=== PATIENT | male | born 1955 | race Caucasian/White ===

== ENCOUNTER 2025-07-06 16:02 | Emergency (ER) | payer MEDICARE, SELFPAY ==
--- OUTSIDE RECORDS SUMMARY | 2025-05-21 06:00 | XMS_ITS | Encounter Summary ---
Author Organization [facility] Address [address] [place] [address] Phone Care Team Providers Care Railroad Brake Operator Name Role Phone Lizbeth Iniguez MD Primary Care Provider [phone] Encounter Details Date Type Department Care Team (Latest Contact Info) Description 05/21/2025 8:00 AM EDT Anticoagulation - Warfarin Visit [facility] [address] [facility] [address] [place] [phone] Pulmonary embolism, unspecified chronicity, unspecified pulmonary embolism type, unspecified whether acute cor pulmonale present (Multi) Discharge Disposition: Home Social History Tobacco Use Types Packs/Day Years Used Date Smoking Tobacco: Never Smokeless Tobacco: Never Alcohol Use Standard Drinks/Week Comments Yes 4 (1 standard drink = 0.6 oz pur e alcohol) PHQ-2 Answer Date Recorded Patient Health Questionnaire-2 Score 0 02/02/2025 Sex and Gender Information Value Date Recorded Sex Assigned at Male 11/13/2024 4:47 PM EDT Legal Sex Male 7:57 AM EST Gender Identity Male 11/13/2024 4:47 PM EDT Sexual Orientation Straight 11/13/2024 4: 47 PM EDT documented as of this encounter Functional Status * Communicable Disease Screening Question Answer Date of Assessment Author Do you have any of the following new or worsening symptoms? None of these 05/22/2025 8:08 AM EDT Evangelina Chavez M A documented as of this encounter Progress Notes * Laura Sloan RN - 05/21/2025 8:00 AM EDT Images from the original note were not included. Patient identification verified with 2 identifiers. Location: [facility] - [address] [facility]. [place] [id number] Referring Physician: Dr Iniguez Enrollment/ Re-enrollment date: 04/24/26 INR Goal: 2.0-3.0 INR monitoring is per [facility] protocol. Anticoagulation Medication: warfarin Indication: Pulmonary Embolism (PE) Subjective Bleeding signs/symptoms: No Bruising: No Major bleeding event: No Thrombosis signs/symptoms: No Thromboembolic event: No Missed doses: No Extra doses: No Medication changes: Yes pt continues to take Tapering Prednisone Dietary changes: No Change in health: No Change in activity: No Alcohol: No Other concerns: No Upcoming Procedures: Does the Patient Have any upcoming procedures that require interruption in anticoagulation therapy?no Does the patient require bridging? no Anticoagulation Summary As of 05/21/2025 INR goal: 2.0-3.0 TTR: 77.0% (2 y) INR used for dosin.30 (05/21/2025) Weekly warfarin total: 36 mg Assessment/Plan Supratherapeutic 1. New dose: will decrease todays dose 2. Next INR: 3 days Education provided to patient during the visit: Patient instructed to call in interim with questions, concerns and changes. Patient educated on interactions between medications and warfarin. Patient educated on dietary consistency in vitamin k consumption. Patient educated on affects of alcohol consumption while taking warfarin. Patient educated on signs of bleeding/clotting. Patient educated on compliance with dosing, follow up appointments, and prescribed plan of care. documented in this encounter Plan of Treatment Upcoming Encounters Date Type Department Care Team (Latest Contact Info) Description 07/19/2025 8:15 AM EST Anticoagulation - Warfarin Visit [facility] [address] [facility] [address] [place] [address] 07/25/2025 1:40 PM EST Office Visit [facility] [address] [facility] [address] [place] [address] Sena Teixeira, COURTROOM CLERK-HEAD NURSE [address] [facility] [address] [place], [place] [phone] 08/03/2025 8:30 AM EST Office [facility] [address] [facility] [address] [place] [address] Lizbeth Iniguez MD [address] [facility], [address] [place] [address] 11/23/2025 8:00 AM EDT Office Visit [facility] [address] [facility] 202 [place] [phone] Sena Teixeira, COURTROOM CLERK-HEAD NURSE [address] [facility] [address] [place] [address] documented as of this encounter Procedures Procedure Name Priority Date/Time Associated Diagnosis Comments POCT INR Routine 05/21/2025 8:06 AM EDT Pulmonary embolism, unspecified chronicity, unspecified pulmonary embolism type, unspecified whether acute cor pulmonale present (Multi) documented in this encounter Results * (ABNORMAL) POCT INR manually resulted (05/21/2025 8:06 AM EDT) [facility] Signature POC INR 3.30(A) 0.90 - 1.10 POC Prothrombin Time 9.30 - 12.50 Blood Venous blood specimen / Unknown 05/21/2025 8:06 AM EDT Lizbeth Iniguez MD POINT OF CARE TEST ENTER/EDIT O RDERABLES Final Result documented in this encounter Visit Diagnoses Diagnosis Pulmonary embolism, unspecified chronicity, unspecified pulmonary embolism type, unspecified whether acute cor pulmonale present (Multi) documented in this encounter Additional Health Concerns Assessment Noted Time A fall risk assessment has been complete d for the patient 02/02/2025 7:48 AM EDT documented as of this encounter Care Teams Railroad Brake Operator Relationship Specialty Start Date End Date Lizbeth Iniguez MD [address] [facility], [address] [place], [place] [phone] PCP - General 12/21/11 documented as of this encounter
--- OUTSIDE RECORDS SUMMARY | 2025-05-24 06:15 | XMS_ITS | Encounter Summary ---
Author Organization [facility] Address [address] [place] [address] Phone Care Team Providers Care High School Professional Name Role Phone Lizbeth Jerez MD Primary Care Provider [phone] Encounter Details Date Type Department Care Team (Latest Contact Info) Description 05/24/2025 8:15 AM EDT Anticoagulation - Warfarin Visit [facility] [address] [facility] [address] [place] [address] Xin Agarwal RN Pulmonary embolism, unspecified chronicity, unspecified pulmonary embolism type, unspecified whether acute cor pulmonale present (Multi) (Primary Dx) Discharge Disposition: Home Social History Tobacco Use [...] Author Do you have any of the follo wing new or worsening symptoms? None of these 05/24/2025 8:04 AM EDT Alden Long documented as of this encounter Progress Notes * Xin Agarwal RN - 05/24/2025 8:15 AM EDT Patient identification verified with 2 identifiers. Location: [facility] - [address] [facility]. [place], [place] [address] Referring Physician: DR. JEREZ Enrollment/ Re-enrollment date: 04/26/26 INR Goal: 2.0-3.0 INR monitoring is per [facility] protocol. Anticoagulation Medication: warfarin Indication: Pulmonary Embolism (PE) Subjective Bleeding signs/symptoms: No Bruising: No Major bleeding event: No Thrombosis signs/symptoms: No Thromboembolic event: No Missed doses: No Extra doses: No Medication changes: Yes PT CONTINUES TO TAPER PREDNISONE. HE HAS ONE MORE DAY OF TAKING TWO TABLETS THEN WILL TAKE ONE TABLET DAILY UNTIL 05/28/25 Dietary changes: No Change in health: No Change in activity: No Alcohol: No Other concerns: No Upcoming Procedures: Does the Patient Have any upcoming procedures that require interruption in anticoagulation therapy?no Does the patient require bridging? no Anticoagulation Summary As of 05/24/2025 INR goal: 2.0-3.0 TTR: 76.7% (2 y) INR used for dosin.20 (05/24/2025) Weekly warfarin total: 36 mg Assessment/Plan Supratherapeutic 1. New dose: PT ALREADY TOOK 5MG TODAY, SO WILL DECREASE TOMORROW'S DOSE FROM 5MG TO 3MG, THEN MAINTAIN CURRENT WARFARIN DOSE. 2. Next INR: 4 DAYS Education provided to patient during the visit: Patient instructed to call in interim with questions, concerns and changes. Patient educated on interactions between medications and warfarin. Patient educated on dietary consistency in vitamin k consumption. Patient educated on affects of alcohol consumption while taking warfarin. Patient educated on signs of bleeding/clotting. documented in this encounter Plan of Treatment Upcoming Encounters Date Type Department Care Team (Latest Contact Info) Description 07/19/2025 8:15 AM EST Anticoagulation - Warfarin Visit [facility] [address] [facility] [address] [place] [address] 07/25/2025 1:40 PM EST Office Visit [facility] [address] [facility] [address] [place] [address] Sena Teixeira, PROMOTION WRITER-DIRECTOR OF STRATEGIC MARKETING [address] [place] [address] 08/03/2025 8:30 AM EST Office Visit [facility] [address] [place] [phone] Lizbeth Jerez MD [address] [facility], [address] [place] [address] 11/23/2025 8:00 AM EDT Office Visit [facility] [address] [facility] 202 [place] [phone] Sena Teixeira, PROMOTION WRITER-DIRECTOR OF STRATEGIC MARKETING [address] [facility] [address] [place] [address] documented as of this encounter Procedures Procedure Name Priority Date/Time Associated Diagnosis Comments POCT INR Routine 05/24/2025 8:12 AM EDT Pulmonary embolism, unspecified chronicity, unspecified pulmonary embolism type, unspecified whether acute cor pulmonale present (Multi) documented in this encounter Results * (ABNORMAL) POCT INR manually resulted (05/24/2025 8:12 AM EDT) [facility] POC INR 3.20(A) 0.90 - 1.10 POC Prothrombin Time 9.30 - 12.50 Blood Venous blood specimen / Unknown 05/24/2025 8:12 AM EDT Lizbeth Jerez MD POINT OF CARE TEST ENTER/EDIT O RDERABLES Final Result documented in this encounter Visit Diagnoses Diagnosis Pulmonary embolism, unspecified chronicity, unspecified pulmonary embolism type, unspecified whether acute cor pulmonale present (Multi)- Primary documented in this encounter Additional Health Concerns Assessment Noted Time A fall risk assessment has been complete d for the patient 02/02/2025 7:48 AM EDT documented as of this encounter Care Teams High School Professional Relationship Specialty Start Date End Date Lizbeth Jerez MD [address] [facility], [address] [place] [address] PCP - General 12/21/11 documented as of this encounter
--- OUTSIDE RECORDS SUMMARY | 2025-05-31 06:15 | XMS_ITS | Encounter Summary ---
Author Organization [facility] Address [address] [place] [address] Phone Care Team Providers Care Launching Pad Mechanic Name Role Phone Lizbeth Jerez MD Primary Care Provider [phone] Encounter Details Date Type Department Care Team (Latest Contact Info) Description 05/31/2025 8:15 AM EDT Anticoagulation - Warfarin Visit [facility] [address] [facility] [address] [place] [phone] Xin Agarwal RN Pulmonary embolism, unspecified chronicity, [...] new or worsening symptoms? None of these 05/31/2025 7:58 AM EDT Ty Butler documented as of this encounter Progress Notes * Xin Agarwal RN - 05/31/2025 8:15 AM EDT Patient identification verified with 2 identifiers. Location: [facility] - [address] [facility]. [place] [id number] Referring Physician: DR. JEREZ Enrollment/ Re-enrollment date: 04/24/26 INR Goal: 2.0-3.0 INR monitoring is per [facility] protocol. Anticoagulation Medication: warfarin Indication: Pulmonary Embolism (PE) Subjective Bleeding signs/symptoms: No Bruising: No Major bleeding event: No Thrombosis signs/symptoms: No Thromboembolic event: No Missed doses: No Extra doses: No Medication changes: No Dietary changes: No Change in health: No Change in activity: No Alcohol: No Other concerns: No Upcoming Procedures: Does the Patient Have any upcoming procedures that require interruption in anticoagulation therapy?no Does the patient require bridging? no Anticoagulation Summary As of 05/31/2025 INR goal: 2.0-3.0 TTR: 76.8% (2 y) INR used for dosin.80 (05/31/2025) Weekly warfarin total: 36 mg Assessment/Plan Therapeutic 1. New dose: no change 2. Next INR: 1 week Education provided to patient during the visit: Patient instructed to call in interim with questions, concerns and changes. Patient educated on signs of bleeding/clotting. documented in this encounter Plan of Treatment Upcoming Encounters Date Type Department Care Team (Latest Contact Info) Description 07/19/2025 8:15 AM EST Anticoagulation - Warfarin Visit [facility] [address] [facility] [address] [place] [address] 07/25/2025 1:40 PM EST Office Visit [facility] [address] [facility] [address] [place] [phone] Sena Teixeira, HEAVY EQUIPMENT OPERATING ENGINEER-MEDICAL MASSAGE THERAPIST [address] [facility] 202 [place] [address] 08/03/2025 8:30 AM EST Office Visit [facility] [address] [facility] [address] [place] [phone] Lizbeth Jerez MD [address] [facility], [address] [place] [address] 11/23/2025 8:00 AM EDT Office Visit [facility] [address] [facility] [address] [place] [address] PuneetSena bautista, HEAVY EQUIPMENT OPERATING ENGINEER-MEDICAL MASSAGE THERAPIST [address] [facility] [address] [place], [place] [phone] documented as of this encounter Procedures Procedure Name Priority Date/Time Associated Diagnosis Comments POCT INR Routine 05/31/2025 8:06 AM EDT Pulmonary embolism, unspecified chronicity, unspecified pulmonary embolism type, unspecified whether acute cor pulmonale present (Multi) documented in this encounter Results * (ABNORMAL) POCT INR manually resulted (05/31/2025 8:06 AM EDT) POC INR 2.80(A) 0.90 - 1.10 POC Prothrombin Time 9.30 - 12.50 Blood Venous blood specimen / Unknown 05/31/2025 8:06 AM EDT us Lizbeth Jerez MD POINT OF CARE TEST [...] documented as of this encounter Care Teams Launching Pad Mechanic Relationship Specialty Start Date End Date Lizbeth Jerez MD [address] [facility], [address] [place] [address] PCP - General 12/21/11 documented as of this encounter
--- OUTSIDE RECORDS SUMMARY | 2025-06-07 06:15 | XMS_ITS | Encounter Summary ---
Author Organization [facility] Address [address] [place] [address] Phone Care Team Providers Care Liner Machine Operator Helper Name Role Phone Lizbeth Jerez MD Primary Care Provider [phone] Encounter Details Date Type Department Care Team (Latest Contact Info) Description 06/07/2025 8:15 AM EDT Anticoagulation - Warfarin Visit [facility] [address] [facility] [address] [place] [phone] Kaylee Clark RN Pulmonary embolism, unspecified chronicity, unspecified pulmonary [...] new or worsening symptoms? None of these 06/07/2025 8:02 AM EDT Evangelina Chavez M A documented as of this encounter Progress Notes * Kaylee Clark RN - 06/07/2025 8:15 AM EDT Patient identification verified with 2 identifiers. Location: [facility] - [address] [facility]. [place] [id number] Referring Physician: DR. LIZBETH JEREZ Enrollment/ Re-enrollment date: 04/26/2026 INR Goal: 2.0-3.0 INR monitoring is per [facility] protocol. Anticoagulation Medication: warfarin Indication: Pulmonary Embolism [...] require bridging? no Anticoagulation Summary As of 06/07/2025 INR goal: 2.0-3.0 TTR: 77.0% (2 y) INR used for dosin.80 (06/07/2025) Weekly warfarin total: 36 mg Assessment/Plan Therapeutic 1. New dose: no change 2. Next INR: 2 weeks Education provided to patient during the visit: Patient instructed to call in interim with questions, concerns and changes. Patient educated on compliance with dosing, follow up appointments, and prescribed plan of care. documented in this encounter Plan of Treatment Upcoming Encounters Date Type Department Care Team (Latest Contact Info) Description 07/19/2025 8:15 AM EST Anticoagulation - Warfarin Visit [facility] [address] [facility] [address] [place] [address] 07/25/2025 1:40 PM EST Office Visit [facility] [address] [place] [phone] Sena Teixeira, DIANA-CENTRAL STATION OPERATOR [address] [place] [address] 08/03/2025 8:30 AM EST Office Visit [facility] [address] [place] [address] Lizbeth Jerez MD [address] [facility], [address] [place] [address] 11/23/2025 8:00 AM EDT Office Visit [facility] [address] [facility] [address] [place] [address] Sena Teixeira, MARKETING PLANNER-CENTRAL STATION OPERATOR [address] [facility] [address] [place], [place] [phone] documented as of this encounter Procedures Procedure Name Priority Date/Time Associated Diagnosis Comments POCT INR Routine 06/07/2025 8:08 AM EDT Pulmonary embolism, unspecified chronicity, unspecified pulmonary embolism type, unspecified whether acute cor pulmonale present (Multi) documented in this encounter Results * (ABNORMAL) POCT INR manually resulted (06/07/2025 8:08 AM EDT) POC INR 2.80(A) 0.90 - 1.10 POC Prothrombin Time 9.30 - 12.50 Blood Venous blood specimen / Unknown 06/07/2025 8:08 AM EDT Lizbeth Jerez MD POINT OF [...] documented as of this encounter Care Teams Liner Machine Operator Helper Relationship Specialty Start Date End Date Lizbeth Jerez MD [address] [facility], [address] [place] [address] PCP - General 12/21/11 documented as of this encounter
--- OUTSIDE RECORDS SUMMARY | 2025-06-21 06:15 | XMS_ITS | Encounter Summary ---
Author Organization [facility] Address [address] [place] [address] Phone Care Team Providers Care Green Chain Offbearer Name Role Phone Lizbeth Jerez MD Primary Care Provider [phone] Encounter Details Date Type Department Care Team (Latest Contact Info) Description 06/21/2025 8:15 AM EDT Anticoagulation - Warfarin Visit [facility] [address] [facility] [address] [place] [phone] Xin Agarwal RN Pulmonary embolism, unspecified chronicity, [...] new or worsening symptoms? None of these 06/21/2025 8:02 AM EDT Alcides Crow MA documented as of this encounter Progress Notes * Xin Agarwal RN - 06/21/2025 8:15 AM EDT Patient identification verified with 2 identifiers. Location: [facility] [address] [place] [address] option #1 Referring Physician: DR. JEREZ Enrollment/ Re-enrollment date: 04/26/26 INR Goal: 2.0-3.0 INR monitoring is per [facility] protocol. Anticoagulation Medication: warfarin Indication: Pulmonary Embolism [...] require bridging? no Anticoagulation Summary As of 06/21/2025 INR goal: 2.0-3.0 TTR: 77.4% (2.1 y) INR used for dosin.70 (06/21/2025) Weekly warfarin total: 36 mg Assessment/Plan Therapeutic 1. New dose: no change 2. Next INR: 1 month Education provided to patient during the visit: Patient instructed to call in interim with questions, concerns and changes. Patient educated on signs of bleeding/clotting. documented in this encounter Plan of Treatment Upcoming Encounters Date Type Department Care Team (Latest Contact Info) Description 07/19/2025 8:15 AM EST Anticoagulation - Warfarin Visit [facility] [address] [facility] [address] [place] [address] 07/25/2025 1:40 PM EST Office Visit [facility] [address] [place] [phone] Sena Teixeira, ACCOUNT ASSOCIATE-SENIOR COMMERCIAL LOAN OFFICER [address] [place] [address] 08/03/2025 8:30 AM EST Office Visit [facility] [address] [facility] [address] [place] [address] Lizbeth Jerez MD [address] [facility], [address] [place] [address] 11/23/2025 8:00 AM EDT Office Visit [facility] [address] [facility] [address] [place] [address] Sena Teixeira, ACCOUNT ASSOCIATE-SENIOR COMMERCIAL LOAN OFFICER [address] [facility] [address] [place], [place] [phone] documented as of this encounter Procedures Procedure Name Priority Date/Time Associated Diagnosis Comments POCT INR Routine 06/21/2025 8:07 AM EDT Pulmonary embolism, unspecified chronicity, unspecified pulmonary embolism type, unspecified whether acute cor pulmonale present (Multi) documented in this encounter Results * (ABNORMAL) POCT INR manually resulted (06/21/2025 8:07 AM EDT) POC INR 2.70(A) 0.90 - 1.10 POC Prothrombin Time 9.30 - 12.50 Blood Venous blood specimen / Unknown 06/21/2025 8:07 AM EDT us Lizbeth Jerez MD POINT [...] documented as of this encounter Care Teams Green Chain Offbearer Relationship Specialty Start Date End Date Lizbeth Jerez MD [address] [facility], [address] [place] [address] PCP - General 12/21/11 documented as of this encounter
[2025-07-06 16:16] VITALS: BP 143/83; PULSE 59; RESP 18; TEMP 36.6; O2SAT 98
--- NOTE | 2025-07-06 16:27 | ED.GENADULT ---
HPI - General Adult General Date Seen: 07/06/25 Chief complaint: Eye Problems Stated complaint: blood in right eye Time Seen by Provider: 07/06/25 16:26 History of Present Illness HPI narrative: 70-year-old gentleman who has a history of atrial fibrillation, on Coumadin presenting to the ER today for blood affecting his right eye. He has no known injury. He is actually from [place] and flew in to [place] today. INR was most recently checked about 2 weeks ago and at that time was therapeutic at 2.6. He and his traveled from their home in [place] today to visit his [id number] who lives here in [place]. He has been doing well lately. No known trauma to his eyes. No other unusual bleeding or bruising. He has not had any eye pain, blurry vision, or any trouble with his vision. No headache. No facial pain. This morning his noted that he had a little bit of blood on the lower, outer, white part of his righteye. the red area has expanded since then. It is not painful or causing any trouble with his vision but he is concerned that his INR might be too thin. He notes that sometimes since he uses generic Coumadin that when he changes from 1 bottle to another, the actual strength of the tablets might be different and that can throw his INR off. It had been pretty stable lately. No other unusual bleeding or bruising. No black or bloody stools. No nose bleeds. No bleeding gums. Related Data Home Medications ?Medication ?Instructions ?Recorded ?Confirmed fluticasone propionate 50 1 spray intranasal DAILY 07/06/25 07/06/25 mcg/actuation nasal spray,suspension (24 Hour Allergy Relief) lisinopril 5 mg tablet 5 mg PO DAILY 07/06/25 07/06/25 loratadine 10 mg tablet (Claritin) 10 mg PO DAILY 07/06/25 07/06/25 lovastatin 20 mg tablet 20 mg PO DAILY 07/06/25 07/06/25 metoprolol succinate 50 mg 50 mg PO DAILY 07/06/25 07/06/25 tablet,extended release 24 hr (Toprol XL) pantoprazole 20 mg tablet,delayed 20 mg PO DAILY 07/06/25 07/06/25 release tamsulosin 0.4 mg capsule (Flomax) 0.4 mg PO DAILY 07/06/25 07/06/25 warfarin 5 mg tablet 5 mg PO DAILY 07/06/25 07/06/25 Allergies Allergy/AdvReac Type Severity Reaction Status Date / Time No Known Drug Allergies Allergy Verified 07/06/25 16:20 PFSH PFS Social History Smoking Status: Never smoker How often do you have a drink containing alcohol: 2-3 times a week AUDIT-C Alcohol total score: 3 Non-prescribed substance use: denies use Exam Narrative: Exam Narrative: Constitutional: Appears well-developed and well-nourished. Alert. Conversant. Non toxic. HENT: Head: Atraumatic. Nose: Nose normal. Mouth/Throat: Oral mucosa is clear and moist. no trismus. Eyes: PERRLA, EOMI. No exophthalmos or enophthalmos. Left eye has normal conjunctiva. On the right eye there is a subconjunctival hemorrhage affecting the inferior, lateral quadrant. Fortunately there is no sign of hyphema. Slit Lamp Exam: Lids: No foreign body noted in detailed exam upper and lower lids/margins Anterior Chamber: No cells or flare, No hyphema. No hypopyon. Cornea: No foreign body. Neck: Normal range of motion. Neck supple. No tracheal deviation present. Cardiovascular: Skin is pink, warm, well perfused with normal capillary refill. Pulmonary/Chest: Effort normal. No stridor. No respiratory distress Musculoskeletal: RUE: Normal range of motion. No tenderness. No deformity LUE: Normal range of motion. No tenderness. No deformity RLE: Normal range of motion. No edema. No tenderness. No deformity LLE: Normal range of motion. No edema. No tenderness. No deformity Neurological: Alert and oriented to person, place, and time. Normal strength. CN II-VII intact. No sensory deficit. GCS eye subscore is 4. GCS verbal subscore is 5. GCS motor subscore is 6. Normal coordination Skin: Skin is warm and dry. No rash noted. No pallor. Normal capillary refill. Psychiatric: Normal mood. Normal affect. Const: Vital Signs, click to edit/add: Vital Signs - 24 hr 07/06/25 16:16 Temperature 98 F Pulse Rate [Pulse Oximeter] 59 L Respiratory Rate 18 Blood Pressure [Ri ght Upper Arm] 143/83 H Pulse Oximetry 98 Oxygen Delivery Me thod Room Air Course Vital Signs Vital signs: Initial Vital Signs Temperature 98 F 07/06/25 16:16 Temperature Source Temporal Artery Scan 07/06/25 16:16 Pulse Rate 59 L 07/06/25 16:16 Respiratory Rate 18 07/06/25 16:16 Blood Pressure 143/83 H 07/06/25 16:16 Blood Pressure Mean 103 07/06/25 16:16 Blood Pressure Position Sitting 07/06/25 16:16 Pulse Oximetry 98 07/06/25 16:16 Oxygen Delivery Method Room Air 07/06/25 16:16 Vital Signs Temperature 98 F 07/06/25 16:16 Pulse Rate 59 L 07/06/25 16:16 Respiratory Rate 18 07/06/25 16:16 Blood Pressure 143/83 H 07/06/25 16:16 Pulse Oximetry 98 07/06/25 16:16 Oxygen Delivery Method Room Air 07/06/25 16:16 Temperature 98 F 07/06/25 16:16 Pulse Rate 59 L 07/06/25 16:16 Respiratory Rate 18 07/06/25 16:16 Blood Pressure 143/83 H 07/06/25 16:16 Pulse Oximetry 98 07/06/25 16:16 Oxygen Delivery Method Room Air 07/06/25 16:16 Medical Decision Making MDM Narrative Medical decision making narrative: Very pleasant 70-year-old gentleman on Coumadin for history of DVT and PE presenting to the ER today with atraumatic redness and blood affecting his right lateral lower eye sclera. Clinical exam is consistent with a subconjunctival hemorrhage. The remainder of is eye exam is normal. Visual acuity is normal. He is not having any visual disturbance or floaters or flashers or vision loss. No evidence for any corneal injury or any cell or flare or hyphema in the anterior chamber. No history of eye trauma. No other associated bruising around the eye or any other unusual bruising on his body. He was concerned because he is on Coumadin he was worried his INR was supratherapeutic. We did check labs an INR is therapeutic at 2.15 and platelet count is normal. Hemoglobin is normal At this point I suspect this was probably a spontaneous subconjunctival hemorrhage or could have been related to some heart sneezing that he was doing earlier. At this point it appears to be benign. Would recommend continue on current medications and monitoring. Precautions for return to the ER need for recheck reviewed. Questions answered. Lab Data Labs: Lab Results 07/06/25 Range/Units 16:56 WBC 5.72 (4.50-11.00) K/uL RBC 5.23 (4.30-5.90) m/uL Hgb 15.3 (13.5-17.5) gm/dL Hct 46.7 (37.0-53.0) % MCV 89 (80-100) fL MCH 29 (26-34) pg MCHC 33 (32-36) gm/dL RDW Coeff of Reynaldo 13.5 (11.5-15.5) % Plt Count 202 (140-440) K/uL Neut % (Auto) 68.5 (42.0-72.0) % Lymph % (Auto) 20.5 (20-44) % [place] % (Auto) 9.1 (0.0-11.0) % Eos % (Auto) 0.9 (0.0-7.0) % Baso % (Auto) 0.3 (0.0-3.0) % Neut # (Auto) 3.92 (1.7-7.0) K/uL Lymph # (Auto) 1.17 (0.90-2.90) K/uL [place] # (Auto) 0.50 (0.00-0.90) K/UL Eos # (Auto) 0.05 (0.00-0.50) K/uL Baso # (Auto) 0.02 (0.00-0.30) K/uL Abs Immat Gran (auto) 0.04 (0.00-0.30) K/uL Imm/Tot Granulo (auto) 0.7 % INR 2.15 H (0.91-1.10) Discharge Plan Discharge Clinical Impression: Subconjunctival hemorrhage of right eye Patient Disposition: Home, Self-Care Condition: Stable Additional Instructions: As we discussed, so far your workup looks reassuring. Your INR is therapeutic at 2.15. Your platelet count is normal today. Your exam shows that you do have a subconjunctival hemorrhage (a small amount of bleeding from a ruptured blood vessel under the sclera of your eye. Although this can look alarming, it is generally a very benign condition. It usually will take several days for her body to gradually reabsorbed the blood. I do not expect any trouble with her vision, pain in your eye, or other problems. If you do notice blurry vision, double vision, vision loss in your right eye, eye pain, pus draining from her eye, or any other concerns, please come back to the ER right away to be rechecked. Prescriptions: No Action metoprolol succinate [Toprol XL] 50 mg tablet extended release 24 hr 50 mg PO DAILY lisinopril 5 mg tablet 5 mg PO DAILY tamsulosin [Flomax] 0.4 mg capsule 0.4 mg PO DAILY lovastatin 20 mg tablet 20 mg PO DAILY pantoprazole 20 mg tablet,delayed release (DR/EC) 20 mg PO DAILY fluticasone propionate [24 Hour Allergy Relief] 50 mcg/actuation spray,suspension 1 spray intranasal DAILY Rx Instructions: administer into each nostril loratadine [Claritin] 10 mg tablet 10 mg PO DAILY warfarin 5 mg tablet 5 mg PO DAILY Rx Instructions: 5mg daily Wed/Wed//Wed/Sat/Sun, 6mg daily on Tuesdays Follow Up/Referrals: Provider,Not a Local [Primary Care Provider, Family Practice] Stand Alone Forms: Knowledge Delivery System[employer] Info Instructions
[2025-07-06 17:02] LABS: Hematocrit* 46.7 % (37.0-53.0); Hemoglobin* 15.3 gm/dL (13.5-17.5); Immature Granulocytes Abs Auto 0.04 K/uL (0.00-0.30); Immature Granulocytes Pct Auto 0.7 %; Lymphocytes Absolute Auto 1.17 K/uL (0.90-2.90); Mean Corpuscular HGB Conc 33 gm/dL (32-36); Mean Corpuscular Hemoglobin 29 pg (26-34); Mean Corpuscular Volume 89 fL (80-100); RDW Coefficient of Variation % 13.5 % (11.5-15.5); Red Blood Count* 5.23 m/uL (4.30-5.90); White Blood Count* 5.72 K/uL (4.50-11.00)
[2025-07-06 17:04] LABS: Slide Review Reflex No
--- OUTSIDE RECORDS SUMMARY | 2025-07-06 17:10 | XMS_ITS | Encounter Summary ---
Author Organization [facility] Address [address] [place] [address] Phone Care Team Providers Care Electronic Heat Seal Operator Name Role Phone Lizbeth Iniguez MD Primary Care Provider [phone] Encounter Details Date Type Department Care Team (Late st Contact Info) Description 09/02/2024 Patient Risk Score ACO Care Management [address] [facility] [address] [place] [address] Social History Tobacco Use Types Packs/Day Years Used Date Smoking Tobacco: Never Smokeless Tobacco: Never Alcohol Use Standard Drinks/Week Comments Yes 4 (1 standard drink = 0.6 oz pur e alcohol) PHQ-2 Answer Date Recorded Patient Health Questionnaire-2 Score 0 08/04/2024 Sex and Gender Information Value Date Recorded Sex Assigned at Male 11/13/2024 4:47 PM EDT Legal Sex Male 7:57 AM EST Gender Identity Male 11/13/2024 4:47 PM EDT Sexual Orientation Straight 11/13/2024 4: 47 PM EDT COVID-19 Exposure Response Date Recorded In the last 10 days, have yo u been in contact with someone who was confirmed or suspected to have Coronavirus/COVID-19? No / Unsure 08/31/2024 7:55 AM EST documented as of this encounter Plan of Treatment Upcoming Encounters Date Type Department Care Team (Latest Contact Info) Description 07/19/2025 8:15 AM EST Anticoagulation - Warfarin Visit [facility] [address] [place] [address] 07/25/2025 1:40 PM EST Office Visit [address] [place] [address] Sena Teixeira, FLAME BRAZING MACHINE OPERATOR-FILM SORTER [address] [facility] [address] [place] [address] 08/03/2025 8:30 AM EST Office Visit [facility] [address] [facility] 201 [place] [address] Lizbeth Iniguez MD [address]778 [facility], [facility] [address] [place] [address] 11/23/2025 8:00 AM EDT Office Visit [address] [place] [address] Sena Teixeira, FLAME BRAZING MACHINE OPERATOR-FILM SORTER [address] [address] [place] [address] documented as of this encounter Visit Diagnoses Not on filedocumented in this encounter Additional Health Concerns Assessment Noted Time A fall risk assessment has been complete d for the patient 08/04/2024 9:36 AM EST documented as of this encounter Care Teams Electronic Heat Seal Operator Relationship Specialty Start Date End Date Lizbeth Iniguez MD [address] [facility], [facility] [address] [place] [address] PCP - General 12/21/11 documented as of this encounter
--- OUTSIDE RECORDS SUMMARY | 2025-07-06 17:10 | XMS_ITS | Encounter Summary ---
Author Organization [facility] Address [address] [place] [address] Phone Care Team Providers Care Art Professor Name Role Phone Lizbeth Iniguez MD Primary Care Provider [phone] Encounter Details Date Type Department Care Team (Late st Contact Info) Description 05/03/2024 Patient Risk Score ACO Care Management [address] [facility] [address] [place] [address] Social History Tobacco Use Types Packs/Day Years Used Date Smoking Tobacco: Never Smokeless Tobacco: Never Alcohol Use Standard Drinks/Week Comments Yes 4 (1 standard drink = 0.6 oz pur e alcohol) PHQ-2 Answer Date Recorded Patient Health Questionnaire-2 Score 0 09/21/2023 Sex and Gender Information Value Date Recorded [...] suspected to have Coronavirus/COVID-19? No / Unsure 04/27/2024 8:06 AM EDT documented as of this encounter Plan of Treatment Upcoming Encounters Date Type Department Care Team (Latest Contact Info) Description 07/19/2025 8:15 AM EST Anticoagulation - Warfarin Visit [facility] [address] [place] [address] 07/25/2025 1:40 PM EST Office Visit [address] [place] [address] Sena Teixeira, CNC MACHINE SETTER-PROGRAM WRITER [address] [facility] [address] [place] [address] 08/03/2025 8:30 AM EST Office Visit [facility] [address] [facility] [address] [place] [address] Lizbeth Iniguez MD [address] [facility], [facility] [address] [place] [address] 11/23/2025 8:00 AM EDT Office Visit [address] [place] [address] Sena Teixeira, CNC MACHINE SETTER-PROGRAM WRITER [address] [facility] [address] [place] [address] documented as of this encounter Visit Diagnoses Not on filedocumented in this encounter Additional Health Concerns Assessment Noted Time A fall risk assessment has been complete d for the patient 09/21/2023 8:18 AM EST documented as of this encounter Care Teams Art Professor Relationship Specialty Start Date End Date Lizbeth Iniguez MD [address] [facility], [facility] [address] [place] [address] PCP - General 12/21/11 documented as of this encounter
--- OUTSIDE RECORDS SUMMARY | 2025-07-06 17:10 | XMS_ITS | Encounter Summary ---
Author Organization [facility] Address [address] [place] [address] Phone Care Team Providers Care Computing Consultant Name Role Phone Lizbeth Iniguez MD Primary Care Provider [phone] Encounter Details Date Type Department Care Team (Late st Contact Info) Description 06/02/2024 Patient Risk Score ACO Care Management [address] [facility] [address] [place] [address] Social History Tobacco Use Types [...] suspected to have Coronavirus/COVID-19? No / Unsure 06/01/2024 8:14 AM EDT documented as of this encounter Plan of Treatment Upcoming Encounters Date Type Department Care Team (Latest Contact Info) Description 07/19/2025 8:15 AM EST Anticoagulation - Warfarin Visit [facility] [address] [place] [address] 07/25/2025 1:40 PM EST Office Visit [address] [place] [address] Sena Teixeira, INFORMATICS NURSE-MALT ROASTER [address] [facility] [address] [place] [address] 08/03/2025 8:30 AM EST Office Visit [facility] [address] [facility] 201 [place] [address] Lizbeth Iniguez MD [address]778 [facility], [facility] 201 [place] [address] 11/23/2025 8:00 AM EDT Office Visit [address] [place] [address] Sena Teixeira, INFORMATICS NURSE-MALT ROASTER [address] [facility] [address] [place] [address] documented as of this encounter Visit Diagnoses Not on filedocumented in this encounter Additional Health Concerns Assessment Noted Time A fall risk assessment has been complete d for the patient 09/21/2023 8:18 AM EST documented as of this encounter Care Teams Computing Consultant Relationship Specialty Start Date End Date Lizbeth Iniguez MD [address] [facility], [facility] [address] [place] [address] PCP - General 12/21/11 documented as of this encounter
--- OUTSIDE RECORDS SUMMARY | 2025-07-06 17:10 | XMS_ITS | Encounter Summary ---
Author Organization [facility] Address [address] [place] [address] Phone Care Team Providers Care Band Singer Name Role Phone Lizbeth Iniguez MD Primary Care Provider [phone] Encounter Details Date Type Department Care Team (Late st Contact Info) Description 07/03/2024 Patient Risk Score ACO Care Management [address] [facility] [address] [place] [address] Social History Tobacco Use Types [...] suspected to have Coronavirus/COVID-19? No / Unsure 07/06/2024 7:56 AM EST documented as of this encounter Functional Status * Communicable Disease Screening Question Answer Date of Assessment Author Do you have any of the following new or worsening symptoms? None of these 07/06/2024 7:56 AM EST Carey Reina MA documented as of this encounter Plan of Treatment Upcoming Encounters Date Type Department Care Team (Latest Contact Info) Description 07/19/2025 8:15 AM EST Anticoagulation - Warfarin Visit [facility] [address] [facility] 203 [place] [address] 07/25/2025 1:40 PM EST Office Visit [address] [place] [address] Sena Teixeira, PERLITE GRINDER-ROUGHER MACHINE OPERATOR [address] [facility] 202 [place] [address] 08/03/2025 8:30 AM EST Office Visit [facility] [address] [facility] 201 [place] [phone] Lizbeth Iniguez MD 5778 [facility], [facility] 201 [place] [address] 11/23/2025 8:00 AM EDT Office Visit [address] [place] [address] Sena Teixeira, PERLITE GRINDER-ROUGHER MACHINE OPERATOR [address] [facility] 202 [place] [address] documented as of this encounter Visit Diagnoses Not on filedocumented in this encounter Additional Health Concerns Assessment Noted Time A fall risk assessment has been complete d for the patient 09/21/2023 8:18 AM EST documented as of this encounter Care Teams Band Singer Relationship Specialty Start Date End Date Lizbeth Iniguez MD [address] [facility] [facility], [facility] [address] [place] [address] PCP - General 12/21/11 documented as of this encounter
--- OUTSIDE RECORDS SUMMARY | 2025-07-06 17:10 | XMS_ITS | Encounter Summary ---
Author Organization [facility] Address [address] [place] [address] Phone Care Team Providers Care Surgical Dental Assistant Name Role Phone Lizbeth Iniguez MD Primary Care Provider [phone] Reason for Visit * Reason Comments Med Refill Encounter Details Date Type Department Care Team (Late st Contact Info) Description 04/28/2024 Refill [facility] [address] [place] [address] Sena Teixeira, PUBLIC HEALTH SPECIALIST-COMPUTER FIELD TECHNICIAN [address] [facility] [address] [place], [place] [phone] BPH with obstruction/lower urinary tract symptoms; Erectile dysfunction, unspecified erectile dysfunction type Social History Tobacco Use Types Packs/Day Years [...] AM EDT documented as of this encounter Miscellaneous Notes * Telephone Encounter - LUIS Alcaraz - 05/09/2024 10:40 AM EDT Duplicate documented in this encounter Plan of Treatment Upcoming Encounters Date Type Department Care Team (Latest Contact Info) Description 07/19/2025 8:15 AM EST Anticoagulation - Warfarin Visit [facility] [address] [place] [address] 07/25/2025 1:40 PM EST Office Visit [address] [place] [phone] Sena Teixeira APRN-CNP [address] [facility] 202 [place], [place] [phone] 08/03/2025 8:30 AM EST Office Visit [facility] [address] [facility] [address] [place] [phone] Lizbeth Iniguez MD 5778 [facility], [facility] [address] [place] [address] 11/23/2025 8:00 AM EDT Office Visit [address] [place] [phone] Sena Teixeira APRN-CNP [address] [facility] [address] [place] [address] documented as of this encounter Visit Diagnoses Diagnosis BPH with obstruction/lower urinary tract symptoms Erectile dysfunction, unspecified erectile dysfunction type documented in this encounter Additional Health Concerns Assessment Noted Time A fall risk assessment has been complete d for the patient 09/21/2023 8:18 AM EST documented as of this encounter Care Teams Surgical Dental Assistant Relationship Specialty Start Date End Date Lizbeth Iniguez MD [address] [facility], [facility] [address] [place] [address] PCP - General 12/21/11 documented as of this encounter
--- OUTSIDE RECORDS SUMMARY | 2025-07-06 17:10 | XMS_ITS | Encounter Summary ---
Author Organization [facility] Address [address] [place] [address] Phone Care Team Providers Care Project Systems Engineer Name Role Phone Lizbeth Iniguez MD Primary Care Provider [phone] Reason for Visit * Reason Comments Med Refill Encounter Details Date Type Department Care Team (Late st Contact Info) Description 04/02/2024 Refill [facility] [address] [place] [address] Sena Teixeira, DIE CASTER-ASSOCIATE DIRECTOR CAREER SERVICES [address] [facility] [address] [place], [place] [phone] BPH with obstruction/lower urinary tract symptoms; Erectile [...] suspected to have Coronavirus/COVID-19? No / Unsure 04/05/2024 3:02 PM EDT documented as of this encounter Functional Status * Communicable Disease Screening Question Answer Date of Assessment Author Do you have any of the following new or worsening symptoms? None of these 04/05/2024 3:02 PM EDT Alma Delia Jacobs MA documented as of this encounter Miscellaneous Notes * Telephone Encounter - LUIS Alcaraz - 04/03/2024 1:09 PM EDT Approving, but needs appt for additional refills. documented in this encounter Plan of Treatment Upcoming Encounters Date Type Department Care Team (Latest Contact Info) Description 07/19/2025 8:15 AM EST Anticoagulation - Warfarin Visit [facility] [address] [facility] [address] [place] [address] 07/25/2025 1:40 PM EST Office Visit [address] [place] [address] Sena Teixeira APRN-CNP [address] [facility] [address] [place] [address] 08/03/2025 8:30 AM EST Office Visit [facility] [address] [place] [phone] Lizbeth Iniguez MD [address] [facility], [address] [place], [place] [phone] 11/23/2025 8:00 AM EDT Office Visit [address] [facility] [address] [place] [address] Sena Teixeira APRN-CNP [address] [facility] [address] [place] [address] documented as of this encounter Visit Diagnoses Diagnosis BPH with obstruction/lower urinary tract symptoms Erectile dysfunction, unspecified erectile dysfunction type documented in this encounter Additional Health Concerns Assessment Noted Time A fall risk assessment has been complete d for the patient 09/21/2023 8:18 AM EST documented as of this encounter Care Teams Project Systems Engineer Relationship Specialty Start Date End Date Lizbeth Iniguez MD [address] [facility], [address] [place] [address] PCP - General 12/21/11 documented as of this encounter
--- OUTSIDE RECORDS SUMMARY | 2025-07-06 17:10 | XMS_ITS | Encounter Summary ---
Author Organization [facility] Address [address] [place] [address] Phone Care Team Providers Care Director Of Business Development Name Role Phone Lizbeth Iniguez MD Primary Care Provider [phone] Encounter Details Date Type Department Care Team (Late st Contact Info) Description 08/28/2024 Scanned Document [facility] [address] [facility] 201 [place] [address] Lizbeth Iniguez MD [address] [facility], [facility] 201 [place] [address] Social History Tobacco Use Types Packs/Day Years [...] new or worsening symptoms? None of these 08/31/2024 7:55 AM EST Robbin Gaspar documented as of this encounter Plan of Treatment Upcoming Encounters Date Type Department Care Team (Latest Contact Info) Description 07/19/2025 8:15 AM EST Anticoagulation - Warfarin Visit [facility] [address] [facility] 203 [place] [address] 07/25/2025 1:40 PM EST Office Visit [address] 202 [place] [address] Sena Teixeira, PAPERBACK MACHINE OPERATOR-REAL ESTATE LEGAL SECRETARY [address] [facility] 202 [place], [place] [address] 08/03/2025 8:30 AM EST Office Visit [facility] [address] [phone] Lizbeth Iniguez MD [address] [facility], [address] [address] 11/23/2025 8:00 AM EDT Office Visit [address] 202 [place] [address] Sena Teixeira, PAPERBACK MACHINE OPERATOR-REAL ESTATE LEGAL SECRETARY [address] [facility] 202 [place] [address] documented as of this encounter Visit Diagnoses Not on filedocumented in this encounter Additional Health Concerns Assessment Noted Time A fall risk assessment has been complete d for the patient 08/04/2024 9:36 AM EST documented as of this encounter Care Teams Director Of Business Development Relationship Specialty Start Date End Date Lizbeth Iniguez MD [address] [facility], [facility] 201 [place] [address] PCP - General 12/21/11 documented as of this encounter
--- OUTSIDE RECORDS SUMMARY | 2025-07-06 17:10 | XMS_ITS | Encounter Summary ---
Author Organization [facility] Address [address] [place] [address] Phone Care Team Providers Care Real Estate Underwriter Name Role Phone Lizbeth Iniguez MD Primary Care Provider [phone] Encounter Details Date Type Department Care Team (Late st Contact Info) Description 04/02/2024 Patient Risk Score ACO Care Management [address] [place] [address] Social History Tobacco Use Types [...] Jacobs MA documented as of this encounter Plan of Treatment Upcoming Encounters Date Type Department Care Team (Latest Contact Info) Description 07/19/2025 8:15 AM EST Anticoagulation - Warfarin Visit [facility] [address] [facility] 203 [place] [address] 07/25/2025 1:40 PM EST Office Visit [address] 202 [place] [address] Sena Teixeira, SCAFFOLD ERECTOR-EYEGLASS LENS CUTTER [address] [facility] 202 [place] [address] 08/03/2025 8:30 AM EST Office Visit [facility] 5778 [facility] 201 [place] [phone] Lizbeth Iniguez MD 5778 [facility], [facility] 201 [place] [address] 11/23/2025 8:00 AM EDT Office Visit [address] 202 [place] [address] Sena Teixeira, SCAFFOLD ERECTOR-EYEGLASS LENS CUTTER [address] [place] [address] 202 [place] [address] documented as of this encounter Visit Diagnoses Not on filedocumented in this encounter Additional Health Concerns Assessment Noted Time A fall risk assessment has been complete d for the patient 09/21/2023 8:18 AM EST documented as of this encounter Care Teams Real Estate Underwriter Relationship Specialty Start Date End Date Lizbeth Iniguez MD [address] [facility], [facility] 201 [place] [address] PCP - General 12/21/11 documented as of this encounter
--- OUTSIDE RECORDS SUMMARY | 2025-07-06 17:10 | XMS_ITS | Encounter Summary ---
Author Organization [facility] Address [address] [place] [address] Phone Care Team Providers Care Agronomist Name Role Phone Lizbeth Iniguez MD Primary Care Provider [phone] Reason for Visit * Reason Comments Med Refill Encounter Details Date Type Department Care Team (Late st Contact Info) Description 09/05/2024 Refill [facility] [address] [facility] 202 [place] [address] Sena Teixeira, ATTORNEY LAWYER-CHILD CARE TEACHER [address] [facility] 202 [place], [place] [phone] Benign prostatic hyperplasia with lower urinary tract symptoms; Other obstructive and reflux uropathy Social History Tobacco Use Types Packs/Day Years [...] suspected to have Coronavirus/COVID-19? No / Unsure 09/07/2024 8:03 AM EST documented as of this encounter Functional Status * Communicable Disease Screening Question Answer Date of Assessment Author Do you have any of the following new or worsening symptoms? None of these 09/07/2024 8:03 AM EST Evangelina Chavez M A documented as of this encounter Miscellaneous Notes * Telephone Encounter - LUIS Alcaraz - 09/06/2024 1:40 PM EST Approving, but needs appt for additional refills. documented in this encounter Plan of Treatment Upcoming Encounters Date Type Department Care Team (Latest Contact Info) Description 07/19/2025 8:15 AM EST Anticoagulation - Warfarin Visit [facility] 8819 [facility] [address] [place] [address] 07/25/2025 1:40 PM EST Office Visit [address] 202 [place] [address] Sena Teixeira APRN-CNP [address] [facility] 202 [place] [address] 08/03/2025 8:30 AM EST Office Visit [facility] [address] [place] [phone] Lizbeth Iniguez MD [address] [facility], [address] 201 [place], [place] [phone] 11/23/2025 8:00 AM EDT Office Visit [address] 202 [place] [address] Sena Teixeira APRN-CNP [address] [facility] 202 [place] [address] documented as of this encounter Visit Diagnoses Diagnosis Benign prostatic hyperplasia with lower urinary tract symptoms Other obstructive and reflux uropathy documented in this encounter Additional Health Concerns Assessment Noted Time A fall risk assessment has been complete d for the patient 08/04/2024 9:36 AM EST documented as of this encounter Care Teams Agronomist Relationship Specialty Start Date End Date Lizbeth Iniguez MD [address] [facility], [address] [place] [address] PCP - General 12/21/11 documented as of this encounter
--- OUTSIDE RECORDS SUMMARY | 2025-07-06 17:11 | XMS_ITS | Encounter Summary ---
Author Organization [facility] Address [address] [place] [address] Phone Care Team Providers Care Sales Representative Uniforms Name Role Phone Lizbeth Iniguez MD Primary Care Provider [phone] Geneva Renee DRUG SAFETY SPECIALIST-MANAGER SALT Unavailable [phone] Paty Butts DRUG SAFETY SPECIALIST-MANAGER SALT Unavailable [phone] Lizbeth Iniguez MD Unavailable [phone] Encounter Details Date Type Department Care Team (Late st Contact Info) Description 02/04/2018 Orders Only [facility] [address] [place] [address] Conversion, Onbase Social History Tobacco Use Types Packs/Day Years Used Date Smoking Tobacco: Never Assessed Sex and Gender Information Value Date Recorded Sex Assigned at Male 11/13/2024 4:47 PM EDT Legal Sex Male 7:57 AM EST Gender Identity Male 11/13/2024 4:47 PM EDT Sexual Orientation Straight 11/13/2024 4: 47 PM EDT documented as of this encounter Plan of Treatment Upcoming Encounters Date Type Department Care Team (Latest Contact Info) Description 07/19/2025 8:15 AM EST Anticoagulation - Warfarin Visit [facility] [address] [facility] [address] [place] [address] 07/25/2025 1:40 PM EST Office Visit [facility] [address] [facility] [address] [place] [address] Sena Teixeira, DRUG SAFETY SPECIALIST-MANAGER SALT [address] [place] [address] 08/03/2025 8:30 AM EST Office Visit [facility] 5778 [facility] 201 [place] [phone] Lizbeth Iniguez MD [address] [facility], [facility] 201 [place] [address] 11/23/2025 8:00 AM EDT Office Visit [facility] [address] [facility] 202 [place] [address] Sena Teixeira DRUG SAFETY SPECIALIST-MANAGER SALT [address] [phone] Scheduled Orders Name Type Priority Associated Diagnoses Orde r Schedule OUTSIDE LAB SCAN Lab Ordered: 02/04/2018 documented as of this encounter Visit Diagnoses Not on filedocumented in this encounter Care Teams Sales Representative Uniforms Relationship Specialty Start Date End Date Lizbeth Iniguez MD [address] [facility], [address] [address] PCP - General 12/21/11 Geneva Renee DRUG SAFETY SPECIALIST-MANAGER SALT [address] [facility], [facility] 201 [place] [address] PCP - MMO ACO PCP 03/30/22 09/29/22 Paty Butts DRUG SAFETY SPECIALIST-MANAGER SALT [address] [facility], [address] [place] [address] PCP - MMO ACO PCP 08/30/21 03/29/22 Lizbeth Iniguez MD [address] [facility], [facility] 201 [place] [address] PCP - MSSP ACO Attributed Provider 08/30/23 02/27/24 documented as of this encounter
--- OUTSIDE RECORDS SUMMARY | 2025-07-06 17:11 | XMS_ITS | Encounter Summary ---
Author Organization [facility] Address [address] [place] [address] Phone Care Team Providers Care Client Technologies Analyst Name Role Phone Lizbeth Iniguez MD Primary Care Provider [phone] Encounter Details Date Type Department Care Team (Late st Contact Info) Description 08/02/2024 Patient Risk Score ACO Care Management [address] [place] [address] Social History Tobacco Use Types [...] Recorded In the last 10 days, have roderick u been in contact with someone who was confirmed or suspected to have Coronavirus/COVID-19? No / Unsure 08/03/2024 8:03 AM EST documented as of this encounter Functional Status * BP Answer Date of Assessment Author 120/80 08/04/2024 9:37 AM EST Jannette Rodriguez, MARIUM * Communicable Disease Screening Question Answer Date of Assessment Author Do you have any of the following new or worsening symptoms? None of these 08/03/2024 8:03 AM EST Esperanza Hawthorne , PCNA * Question Answer Date of Assessment Author Little interest or pleasure in doing things Not at all 08/04/2024 9:36 AM Aracely Cardona CMA Feeling down, depressed, or hopeless Not at all 08/04/2024 9:36 AM Aracely Cardona CMA * Over the past 2 weeks, how often have you been bothered by any of the following problems? Question Answer Date of Assessment Author Little interest or pleasure in doing things Not at all 08/04/2024 9:36 AM Aracely Cardona CMA Feeling down, depressed, or hopeless Not at all 08/04/2024 9:36 AM Aracely Cardona CMA Patient Health Questionnaire-2 Score 0 08/04/2024 9:36 AM Axel Cardona CMA documented as of this encounter Plan of Treatment Upcoming Encounters Date Type Department Care Team (Latest Contact Info) Description 07/19/2025 8:15 AM EST Anticoagulation - Warfarin Visit [facility] 8819 [facility] 203 [place] [address] 07/25/2025 1:40 PM EST Office Visit [address] 202 [place] [phone] Sena Teixeira, CONSTRUCTION CARPENTERS HELPER-SCRATCHER [address] [facility] 202 [place] [address] 08/03/2025 8:30 AM EST Office Visit [facility] [address] [facility] 201 [place] [address] Lizbeth Iniguez MD [facility]778 [facility] [address] [place] [address] 11/23/2025 8:00 AM EDT Office Visit [address] 202 [place] [address] Sena Teixeira, CONSTRUCTION CARPENTERS HELPER-SCRATCHER [address] [facility] 202 [place] [address] documented as of this encounter Visit Diagnoses Not on filedocumented in this encounter Additional Health Concerns Assessment Noted Time A fall risk assessment has been complete d for the patient 09/21/2023 8:18 AM EST documented as of this encounter Care Teams Client Technologies Analyst Relationship Specialty Start Date End Date Lizbeth Iniguez MD [address] [facility], [address] [place] [address] PCP - General 12/21/11 documented as of this encounter
--- OUTSIDE RECORDS SUMMARY | 2025-07-06 17:11 | XMS_ITS | Encounter Summary ---
Author Organization [facility] Address [address] [place] [address] Phone Care Team Providers Care Visual C Developer Name Role Phone Lizbeth Iniguez MD Primary Care Provider [phone] Geneva Renee DRAMATIC ART TEACHER-TRANSPORTATION DIRECTOR Unavailable [phone] Paty Butts DRAMATIC ART TEACHER-TRANSPORTATION DIRECTOR Unavailable [phone] Lizbeth Iniguez MD Unavailable [phone] Encounter Details Date Type Department Care Team (Late st Contact Info) Description 02/08/2018 Orders Only [facility] [address] [place] [address] Conversion, Onbase Social History Tobacco Use Types [...] 8:15 AM EST Anticoagulation - Warfarin Visit [facility] [address] [facility] [address] 203 [place] [address] 07/25/2025 1:40 PM EST Office Visit [facility] [address] [facility] [address] 202 [place] [phone] Sena Teixeira, DRAMATIC ART TEACHER-TRANSPORTATION DIRECTOR [address] [place] [address] 08/03/2025 8:30 AM EST Office Visit [facility] 5778 [facility] 201 [place] [phone] Lizbeth Iniguez MD [address] [facility], [facility] 201 [place] [address] 11/23/2025 8:00 AM EDT Office Visit [facility] [address] [address] [facility] 202 [place] [address] Sena Teixeira DRAMATIC ART TEACHER-TRANSPORTATION DIRECTOR [address] [place] [address] [phone] Scheduled Orders Name Type Priority Associated Diagnoses Orde r Schedule OUTSIDE LAB SCAN Lab Ordered: 02/08/2018 documented as of this encounter Visit Diagnoses Not on filedocumented in this encounter Care Teams Visual C Developer Relationship Specialty Start Date End Date Lizbeth Iniguez MD [address] [facility], [address] [address] PCP - General 12/21/11 Geneva Renee DRAMATIC ART TEACHER-TRANSPORTATION DIRECTOR [address] [facility], [facility] 201 [place] [address] PCP - MMO ACO PCP 03/30/22 09/29/22 Paty Butts DRAMATIC ART TEACHER-TRANSPORTATION DIRECTOR [address] [facility], [address] [place] [address] PCP - MMO ACO PCP 08/30/21 03/29/22 Lizbeth Iniguez MD [address] [facility], [facility] 201 [place] [address] PCP - MSSP ACO Attributed Provider 08/30/23 02/27/24 documented as of this encounter
--- OUTSIDE RECORDS SUMMARY | 2025-07-06 17:11 | XMS_ITS | Encounter Summary ---
Author Organization [facility] Address [address] [place] [address] Phone Care Team Providers Care Diagnostic Radiologic Technologist Name Role Phone Lizbeth Iniguez MD Primary Care Provider [phone] Reason for Visit * Reason Comments Med Refill Encounter Details Date Type Department Care Team (Late st Contact Info) Description 06/11/2024 Refill [facility] [address] [facility] 202 [place] [address] Sena Teixeira, DIANA-LPN CMA [address] [facility] 202 [place], [place] [phone] Benign prostatic hyperplasia with lower urinary tract [...] * Telephone Encounter - LUIS Alcaraz - 06/12/2024 11:03 AM EDT Approving, but needs appt for additional refills. documented in this encounter Plan of Treatment Upcoming Encounters Date Type Department Care Team (Latest Contact Info) Description 07/19/2025 8:15 AM EST Anticoagulation - Warfarin Visit [facility] 8819 [facility] [address] 203 [place] [address] 07/25/2025 1:40 PM EST Office Visit [address] 202 [place] [address] Sena Teixeira APRN-CNP [address] [facility] 202 [place], [place] [address] 08/03/2025 8:30 AM EST Office Visit [facility] 5778 [facility] 201 [place] [phone] Lizbeth Iniguez MD [address] [facility] 201 [place], [place] [address] 11/23/2025 8:00 AM EDT Office Visit [address] 202 [place] [address] Sena Teixeira APRN-CNP [address] [facility] 202 [place] [address] documented as of this encounter Visit Diagnoses Diagnosis Benign prostatic hyperplasia with lower urinary tract symptoms Other obstructive and reflux uropathy documented in this encounter Additional Health Concerns Assessment Noted Time A fall risk assessment has been complete d for the patient 09/21/2023 8:18 AM EST documented as of this encounter Care Teams Diagnostic Radiologic Technologist Relationship Specialty Start Date End Date Lizbeth Iniguez MD [address] [facility], [facility] 201 [place] [address] PCP - General 12/21/11 documented as of this encounter
--- OUTSIDE RECORDS SUMMARY | 2025-07-06 17:12 | XMS_ITS | Encounter Summary ---
Author Organization [facility] Address [address] [place] [address] Phone Care Team Providers Care Electronics Commodity Manager Name Role Phone Lizbeth Iniguez MD Primary Care Provider [phone] Encounter Details Date Type Department Care Team (Latest Contact Info) Description 05/22/2025 Travel Social History Tobacco Use Types Packs/Day Years [...] M A documented as of this encounter Plan of Treatment Upcoming Encounters Date Type Department Care Team (Latest Contact Info) Description 07/19/2025 8:15 AM EST Anticoagulation - Warfarin Visit [facility] [address] [place] [address] 07/25/2025 1:40 PM EST Office Visit [facility] [address] [place] [address] Sena Teixeira, FOOD AND BEVERAGE CONTROLLER-HIDE HANDLER [address] [facility] 202 [place] [address] 08/03/2025 8:30 AM EST Office Visit [facility] Physicians [address] [facility] 201 [place] [phone] Lizbeth Iniguez MD 5778 [facility] 201 [place] [address] 11/23/2025 8:00 AM EDT Office Visit [facility] [address] [facility] 202 [place] [address] Sena Teixeira, FOOD AND BEVERAGE CONTROLLER-HIDE HANDLER [address] [facility] 202 [place] [address] documented as of this encounter Visit Diagnoses Not on filedocumented in this encounter Additional Health Concerns Assessment Noted Time A fall risk assessment has been complete d for the patient 02/02/2025 7:48 AM EDT documented as of this encounter Care Teams Electronics Commodity Manager Relationship Specialty Start Date End Date Lizbeth Iniguez MD [address] [facility], [facility] 201 [place] [address] PCP - General 12/21/11 documented as of this encounter
--- OUTSIDE RECORDS SUMMARY | 2025-07-06 17:12 | XMS_ITS | Encounter Summary ---
Author Organization [facility] Address [address] [place] [address] Phone Care Team Providers Care Pallet Rectifier Name Role Phone Lizbeth Iniguez MD Primary Care Provider [phone] Encounter Details Date Type Department Care Team (Latest Contact Info) Description 05/31/2025 Travel Social History Tobacco Use Types Packs/Day [...] Ty Butler documented as of this encounter Plan of Treatment Upcoming Encounters Date Type Department Care Team (Latest Contact Info) Description 07/19/2025 8:15 AM EST Anticoagulation - Warfarin Visit [facility] [address] [place] [address] 07/25/2025 1:40 PM EST Office Visit [facility] [address] [place] [address] Sena Teixeira, FLIGHT HOSTESS-BANK COMPLIANCE OFFICER [address] [facility] 202 [place] [address] 08/03/2025 8:30 AM EST Office Visit [facility] Physicians [address] [facility] 201 [place] [address] Lizbeth Iniguez MD [address] [facility] 201 [place] [address] 11/23/2025 8:00 AM EDT Office Visit [facility] [address] [facility] 202 [place] [address] Sena Teixeira, FLIGHT HOSTESS-BANK COMPLIANCE OFFICER [address] [facility] 202 [place] [address] documented as of this encounter Visit Diagnoses Not on filedocumented in this encounter Additional Health Concerns Assessment Noted Time A fall risk assessment has been complete d for the patient 02/02/2025 7:48 AM EDT documented as of this encounter Care Teams Pallet Rectifier Relationship Specialty Start Date End Date Lizbeth Iniguez MD [address] [facility], [facility] 201 [place] [address] PCP - General 12/21/11 documented as of this encounter
--- OUTSIDE RECORDS SUMMARY | 2025-07-06 17:12 | XMS_ITS | Encounter Summary ---
Author Organization [facility] Address [address] [place] [address] Phone Care Team Providers Care Endocrinologist Name Role Phone Lizbeth Jerez MD Primary Care Provider [phone] Encounter Details Date Type Department Care Team (Latest Contact Info) Description 05/28/2025 Anticoagulation - Warfarin Visit [facility] [address] [facility] [address] [place] [address] Gume Lu RN Pulmonary embolism, unspecified chronicity, unspecified pulmonary embolism type, unspecified whether acute cor pulmonale present (Multi) (Primary Dx) Social History Tobacco Use Types Packs/Day Years [...] PM EDT documented as of this encounter Progress Notes * Gume Lu RN - 05/28/2025 7:45 AM EDT Patient identification verified with 2 identifiers. Location: [facility] - [email or web address] [facility]. [place], [place] [address] Referring Physician: DR. JEREZ Enrollment/ Re-enrollment date: 04/26/26 INR Goal: 2.0-3.0 INR monitoring is per AMS protocol. Anticoagulation Medication: warfarin Indication: Pulmonary Embolism (PE) Subjective Bleeding signs/symptoms: No Bruising: No Major bleeding event: No Thrombosis signs/symptoms: No Thromboembolic event: No Missed doses: No Extra doses: No Medication changes: Yes Last dose of prednisone for right foot issue Dietary changes: No Change in health: No Change in activity: No Alcohol: No Other concerns: No Upcoming Procedures: Does the Patient Have any upcoming procedures that require interruption in anticoagulation therapy?no Does the patient require bridging? no Anticoagulation Summary As of 05/28/2025 INR goal: 2.0-3.0 TTR: 76.7% (2 y) INR used for dosin.40 (05/28/2025) Weekly warfarin total: 36 mg Assessment/Plan Therapeutic 1. New dose: no change 2. Next INR:05/31urs Education provided to patient during the visit: [...] 8:15 AM EST Anticoagulation - Warfarin Visit [facility] [address] [facility] 203 [place] [address] 07/25/2025 1:40 PM EST Office Visit [facility] [address] [facility] 202 [place] [address] Sena Teixeira, TRAVERSE ROD ASSEMBLER-VICE PRESIDENT OF TALENT MANAGEMENT [address] [facility] 202 [place] [address] 08/03/2025 8:30 AM EST Office Visit [facility] [address] [facility] 201 [place] [address] Lizbeth Jerez MD [address] [facility], [address] [place] [address] 11/23/2025 8:00 AM EDT Office Visit [facility] [address] [facility] 202 [place] [address] Sena Teixeira, TRAVERSE ROD ASSEMBLER-VICE PRESIDENT OF TALENT MANAGEMENT [address] [facility] 202 [place], [place] [phone] documented as of this encounter Procedures Procedure Name Priority Date/Time Associated Diagnosis Comments POCT INR Routine 05/28/2025 7:49 AM EDT Pulmonary embolism, unspecified chronicity, unspecified pulmonary embolism type, unspecified whether acute cor pulmonale present (Multi) documented in this encounter Results * (ABNORMAL) POCT INR manually resulted (05/28/2025 7:49 AM EDT) POC INR 2.40(A) 0.90 - 1.10 POC Prothrombin Time 9.30 - 12.50 Blood Venous blood specimen / Unknown 05/28/2025 7:49 AM EDT Lizbeth Jerez MD POINT OF [...] documented as of this encounter Care Teams Endocrinologist Relationship Specialty Start Date End Date Lizbeth Jerez MD [address] [facility], [address] [place] [address] PCP - General 12/21/11 documented as of this encounter
--- OUTSIDE RECORDS SUMMARY | 2025-07-06 17:12 | XMS_ITS | Encounter Summary ---
Author Organization [facility] Address [address] [address] Phone Care Team Providers Care Slag Wheeler Name Role Phone Lizbeth Iniguez MD Primary Care Provider [phone] Encounter Details Date Type Department Care Team (Latest Contact Info) Description 05/24/2025 Travel Social History Tobacco Use Types Packs/Day [...] Alden Long documented as of this encounter Plan of Treatment Upcoming Encounters Date Type Department Care Team (Latest Contact Info) Description 07/19/2025 8:15 AM EST Anticoagulation - Warfarin Visit [facility] [address] [place] [address] 07/25/2025 1:40 PM EST Office Visit [facility] [address] [place] [address] Sena Teixeira, COMMERCIAL OR INSTITUTIONAL CLEANER-CPAS [address] [facility] 202 [place] [address] 08/03/2025 8:30 AM EST Office Visit [facility] [address] [facility] 201 [place] [address] Lizbeth Iniguez MD [address] [facility] 201 [place] [address] 11/23/2025 8:00 AM EDT Office Visit [facility] [address] [facility] 202 [place] [address] Sena Teixeira, COMMERCIAL OR INSTITUTIONAL CLEANER-CPAS [address] [facility] 202 [place] [address] documented as of this encounter Visit Diagnoses Not on filedocumented in this encounter Additional Health Concerns Assessment Noted Time A fall risk assessment has been complete d for the patient 02/02/2025 7:48 AM EDT documented as of this encounter Care Teams Slag Wheeler Relationship Specialty Start Date End Date Lizbeth Iniguez MD [address] [facility], [facility] [place] 201 [place] [address] PCP - General 12/21/11 documented as of this encounter
--- OUTSIDE RECORDS SUMMARY | 2025-07-06 17:12 | XMS_ITS | Encounter Summary ---
Author Organization [facility] Address [address] [place] [address] Phone Care Team Providers Care Activities Counselor Name Role Phone Lizbeth Iniguez MD Primary Care Provider [phone] Lizbeth Iniguez MD Unavailable [phone] Reason for Visit * Reason Comments Med Change Request Encounter Details Date Type Department Care Team ([facility] st Contact Info) Description 06/30/2023 [facility] [address] [facility] 2 [place] [address] Grabiel Kelly MD [address] [facility] 2 [place], [place] [phone] Gastro-esophageal reflux disease without esophagitis Social History Tobacco Use Types Packs/Day Years Used Date Smoking Tobacco: Never Smokeless Tobacco: Never Alcohol Use Standard Drinks/Week Comments Yes 4 (1 standard drink = 0.6 oz pur e alcohol) PHQ-2 Answer Date Recorded Patient Health Questionnaire-2 Score 0 01/28/2023 Sex and Gender Information Value Date Recorded [...] suspected to have Coronavirus/COVID-19? No / Unsure 07/01/2023 8:52 AM EDT documented as of this encounter Functional Status * Communicable Disease Screening Question Answer Date of Assessment Author Do you have any of the following new or worsening symptoms? None of these 07/01/2023 8:52 AM EDT Deysi Hull LPN documented as of this encounter Miscellaneous Notes * Telephone Encounter - Grabiel Kelly MD - 06/30/2023 11:20 AM EDT Approving, but needs appt for additional refills. documented in this encounter Plan of Treatment Upcoming Encounters Date Type Department Care Team (Latest Contact Info) Description 07/19/2025 8:15 AM EST Anticoagulation - Warfarin Visit [facility] 8819 [facility] 203 [place] [address] 07/25/2025 1:40 PM EST Office Visit [address] 202 [place] [address] Sena Teixeira, LOW VOLTAGE TECHNICIAN-FRAMING AND HANGING [address] [facility] 202 [place] [address] 08/03/2025 8:30 AM EST Office Visit [facility] [address] [facility] 201 [place] [phone] Lizbeth Iniguez MD [facility] [facility] [address] [place] [address] 11/23/2025 8:00 AM EDT Office Visit [address] [place] [address] Sena Teixeira, LOW VOLTAGE TECHNICIAN-FRAMING AND HANGING [address] [facility] 202 [place] [address] documented as of this encounter Visit Diagnoses Diagnosis Gastro-esophageal reflux disease without esophagitis documented in this encounter Additional Health Concerns Assessment Noted Time A fall risk assessment has been complete d for the patient 01/28/2023 10:23 AM EDT documented as of this encounter Care Teams Activities Counselor Relationship Specialty Start Date End Date Lizbeth Iniguez MD [address] [email or web address] [address] [place] [address] PCP - General 12/21/11 Lizbeth Iniguez MD [address] [email or web address] [address] [place] [address] PCP - MSSP ACO Attributed Provider 08/30/23 02/27/24 documented as of this encounter
--- OUTSIDE RECORDS SUMMARY | 2025-07-06 17:12 | XMS_ITS | Encounter Summary ---
Author Organization [facility] Address [address] [place] [address] Phone Care Team Providers Care Instant Powder Supervisor Name Role Phone Lizbeth Iniguez MD Primary Care Provider [phone] Encounter Details Date Type Department Care Team (Latest Contact Info) Description 05/28/2025 Travel Social History Tobacco Use Types Packs/Day [...] new or worsening symptoms? None of these 05/28/2025 8:18 AM EDT Evangelina Chavez M A documented as of this encounter Plan of Treatment Upcoming Encounters Date Type Department Care Team (Latest Contact Info) Description 07/19/2025 8:15 AM EST Anticoagulation - Warfarin Visit [facility] [address] [place] [address] 07/25/2025 1:40 PM EST Office Visit [facility] [address] [place] [address] Sena Teixeira, GROUP DIRECTOR-MEDICAL SOCIAL WORKER [address] [facility] 202 [place] [address] 08/03/2025 8:30 AM EST Office Visit [facility] [address] [facility] 201 [place] [phone] Lizbeth Iniguez MD [address] [facility], [facility] 201 [place] [address] 11/23/2025 8:00 AM EDT Office Visit [facility] [address] [facility] 202 [place] [address] Sena Teixeira, GROUP DIRECTOR-MEDICAL SOCIAL WORKER [address] [facility] 202 [place] [address] documented as of this encounter Visit Diagnoses Not on filedocumented in this encounter Additional Health Concerns Assessment Noted Time A fall risk assessment has been complete d for the patient 02/02/2025 7:48 AM EDT documented as of this encounter Care Teams Instant Powder Supervisor Relationship Specialty Start Date End Date Lizbeth Iniguez MD [address] [facility], [facility] 201 [place] [address] PCP - General 12/21/11 documented as of this encounter
--- OUTSIDE RECORDS SUMMARY | 2025-07-06 17:12 | XMS_ITS | Encounter Summary ---
Author Organization [facility] Address [address] [place] [address] Phone Care Team Providers Care Shipping Clerk Name Role Phone Lizbeth Iniguez MD Primary Care Provider [phone] Encounter Details Date Type Department Care Team (Late st Contact Info) Description 05/27/2025 Orders Only [facility] [address] [facility] 202 [place] [address] Sena Teixeira, SENIOR COMMISSIONS ANALYST-RELIEF DOCKING MASTER [address] [place], [place] [phone] Screening for prostate cancer Social History Tobacco Use Types Packs/Day Years [...] 8:15 AM EST Anticoagulation - Warfarin Visit [facility] [address] [facility] 203 [place] [address] 07/25/2025 1:40 PM EST Office Visit [address] 202 [place] [address] Sena Teixeira, SENIOR COMMISSIONS ANALYST-RELIEF DOCKING MASTER [address] [facility] 202 [place], [place] [address] 08/03/2025 8:30 AM EST Office Visit [facility] [address] [facility] 201 [place] [address] Lizbeth Iniguez MD 5[address] [facility] 201 [place] [address] 11/23/2025 8:00 AM EDT Office Visit [address] 202 [place] [address] Sena Teixeira, SENIOR COMMISSIONS ANALYST-RELIEF DOCKING MASTER [address] [facility] [place] 202 [place] [address] documented as of this encounter Visit Diagnoses Diagnosis Screening for prostate cancer Special screening for malignant neoplasm of prostate documented in this encounter Additional Health Concerns Assessment Noted Time A fall risk assessment has been complete d for the patient 02/02/2025 7:48 AM EDT documented as of this encounter Care Teams Shipping Clerk Relationship Specialty Start Date End Date Lizbeth Iniguez MD [address] [email or web address]], [facility] 201 [place] [address] PCP - General 12/21/11 documented as of this encounter
--- OUTSIDE RECORDS SUMMARY | 2025-07-06 17:13 | XMS_ITS | Encounter Summary ---
Author Organization [facility] Address [address] [place] [address] Phone Care Team Providers Care Rn Otolaryngology Name Role Phone Lizbeth Iniguez MD Primary Care Provider [phone] Lizbeth Iniguez MD Unavailable [phone] Encounter Details Date Type Department Care Team (Late st Contact Info) Description 06/09/2023 Lab Requisition [facility] [address] [place] [phone] Grabiel Kelly MD [address] [facility], [place] [phone] Social History Tobacco Use Types Packs/Day Years [...] suspected to have Coronavirus/COVID-19? No / Unsure 06/10/2023 8:12 AM EDT documented as of this encounter Functional Status * Communicable Disease Screening Question Answer Date of Assessment Author Do you have any of the following new or worsening symptoms? None of these 06/10/2023 8:12 AM EDT Deysi Hull LPN documented as of this encounter Plan of Treatment Upcoming Encounters Date Type Department Care Team (Latest Contact Info) Description 07/19/2025 8:15 AM EST Anticoagulation - Warfarin Visit [facility] [address] [place] [address] 07/25/2025 1:40 PM EST Office Visit [address] [place] [address] Sena Teixeira, EMANATIONS ANALYSIS TECHNICIAN-FRENCH LECTURER [address] [facility] 202 [place], [place] [address] 08/03/2025 8:30 AM EST Office Visit [facility] [address] [facility] 201 [place] [address] Lizbeth Iniguez MD [facility] [facility] [address] [place] [address] 11/23/2025 8:00 AM EDT Office Visit [address] [place] [address] Sena Teixeira, EMANATIONS ANALYSIS TECHNICIAN-FRENCH LECTURER [address] [facility] 202 [place] [address] documented as of this encounter Procedures Procedure Name Priority Date/Time Associated Diagnosis Comments SURGICAL PATHOLOGY EXAM Routine 06/08/2023 8:45 AM EDT documented in this encounter Results * Surgical Pathology Exam (06/08/2023 8:45 AM EDT) Case Report Surgical Pathology Case: [id number] Authorizing Provider: Grabiel Kelly MD Collected: 06/08/2023 0845 Ordering Location: [facility] Received: 06/09/20237 Center Pathologist: Lola Berrios DO Specimens: A) - STOMACH ANTRUM BIOPSY, STOMACH, BODY, ANTRUM, COLD FORCEP, BIOPSY B) - ESOPHAGUS DISTAL BIOPSY, ESOPHAGUS, LOWER THIRD, COLD FORCEP, BIOPSY 06/14/2023 8:54 AM EDT [facility] FINAL DIAGNOSIS A. STOMACH ANTRUM BIOPSY: Gastric mucosa with mild chronic inflammation No Helicobacter pylori organisms identified on H&E stain B. ESOPHAGUS DISTAL BIOPSY: Squamous mucosa with no significant pathologic abnormality 06/14/2023 8:54 AM EDT [facility] at 0853 EDT By the signature on this report, the individual or group listed as making the Final Interpretation/ Diagnosis certifies that they have reviewed this case. 06/14/2023 8:54 AM EDT [facility] Clinical History Heartburn, Gastro-esophage al reflux disease. A) Gastritis, R/O Helicobacter pylori 06/14/2023 8:54 AM EDT [facility] Gross Description A: Received in formalin, labeled with the patient's name and hospital number and 1, stomach, body, antrum, cold forcep, are multiple fragments of villarreal, soft tissue aggregating to 1.6 x 0.3 x 0.2 cm. The specimen is submitted in toto in one cassette. SBS B: Received in formalin, labeled with the patient's name and hospital number and 2, esophagus, lower third, cold forcep, are multiple fragments of villarreal, soft tissue aggregating to 1.6 x 0.3 x 0.2 cm. The specimen is submitted in toto in one cassette. SBS 06/14/2023 8:54 AM EDT [facility] Tissue (STOMACH ANTRUM BIOPSY) 06/08/2023 8:45 AM EDT 06/09/2023 6:17 PM EDT Tissue specimen (specimen) (ESOPHAGUS DISTAL BIOPSY) 06/08/2023 8:45 AM EDT 06/09/2023 6:17 PM EDT us Grabiel Kelly MD LAB PATHOLOGY ORDERABLES Karen kaur Result [facility] [address] [place] [address] [facility] [address] [facility] [id number] [place], [place] [phone] documented in this encounter Visit Diagnoses Not on filedocumented in this encounter Additional Health Concerns Assessment Noted Time A fall risk assessment has been complete d for the patient 01/28/2023 10:23 AM EDT documented as of this encounter Care Teams Rn Otolaryngology Relationship Specialty Start Date End Date Lizbeth Iniguez MD [address] [facility], [facility] 201 [place] [address] PCP - General 12/21/11 Lizbeth Iniguez MD [address] [facility], [facility] 201 [place] [address] PCP - MSSP ACO Attributed Provider 08/30/23 02/27/24 documented as of this encounter
--- OUTSIDE RECORDS SUMMARY | 2025-07-06 17:13 | XMS_ITS | Encounter Summary ---
Author Organization [facility] Address [address] [place] [address] Phone Care Team Providers Care Polytechnic Teacher Name Role Phone Lizbeth Iniguez MD Primary Care Provider [phone] Reason for Visit * Reason Comments Med Refill Encounter Details Date Type Department Care Team (Late st Contact Info) Description 05/09/2025 Refill [facility] [address] [place] [address] Sena Teixeira, INCIDENT HANDLER-CABLE CUTTER AND SWAGER [address] [facility] 202 [place], [place] [phone] BPH with obstruction/lower urinary tract symptoms; Erectile [...] 8:15 AM EST Anticoagulation - Warfarin Visit [facility] [address] [place] [address] 07/25/2025 1:40 PM EST Office Visit [address] [place] [address] Sena Teixeira, INCIDENT HANDLER-CABLE CUTTER AND SWAGER [address] [address] 08/03/2025 8:30 AM EST Office Visit [facility] Physicians 5778 [facility] 201 [place] [address] Lizbeth Iniguez MD 5778 [facility], [address] [address] 11/23/2025 8:00 AM EDT Office Visit [address] [address] Sena Teixeira, INCIDENT HANDLER-CABLE CUTTER AND SWAGER [address] [place] [address] documented as of this encounter Visit Diagnoses Diagnosis BPH with obstruction/lower urinary tract symptoms Erectile dysfunction, unspecified erectile dysfunction type documented in this encounter Additional Health Concerns Assessment Noted Time A fall risk assessment has been complete d for the patient 02/02/2025 7:48 AM EDT documented as of this encounter Care Teams Polytechnic Teacher Relationship Specialty Start Date End Date Lizbeth Iniguez MD 5778 [facility], [facility] 201 [place] [address] PCP - General 12/21/11 documented as of this encounter
--- OUTSIDE RECORDS SUMMARY | 2025-07-06 17:14 | XMS_ITS | Encounter Summary ---
Author Organization [facility] Address [address] [place] [address] Phone Care Team Providers Care Data Technician Name Role Phone Lizbeth Iniguez MD Primary Care Provider [phone] Encounter Details Date Type Department Care Team (Late st Contact Info) Description 05/14/2025 Orders Only [facility] [address] [place] [address] Sena Teixeira, FILAMENT WELDER-CASH CLERK [address] [place] [address] Social History Tobacco Use Types Packs/Day Years [...] new or worsening symptoms? None of these 05/17/2025 8:06 AM EDT Marli Hernandez MA documented as of this encounter Plan of Treatment Upcoming Encounters Date Type Department Care Team (Latest Contact Info) Description 07/19/2025 8:15 AM EST Anticoagulation - Warfarin Visit [facility] [address] [facility] 203 [place] [address] 07/25/2025 1:40 PM EST Office Visit [address] [place] [address] Sena Teixeira, FILAMENT WELDER-CASH CLERK [address] [facility] 202 [place], [place] [address] 08/03/2025 8:30 AM EST Office Visit [facility] 5778 [facility] 201 [place] [address] Lizbeth Iniguez MD 5778 [facility], [facility] 201 [place] [address] 11/23/2025 8:00 AM EDT Office Visit [address] [place] [address] Sena Teixeira, FILAMENT WELDER-CASH CLERK [address] [facility] 202 [place] [address] documented as of this encounter Visit Diagnoses Not on filedocumented in this encounter Additional Health Concerns Assessment Noted Time A fall risk assessment has been complete d for the patient 02/02/2025 7:48 AM EDT documented as of this encounter Care Teams Data Technician Relationship Specialty Start Date End Date Lizbeth Iniguez MD 5778 [facility], [facility] 201 [place] [address] PCP - General 12/21/11 documented as of this encounter
--- OUTSIDE RECORDS SUMMARY | 2025-07-06 17:15 | XMS_ITS | Encounter Summary ---
Author Organization [facility] Address [address] [place] [address] Phone Care Team Providers Care Grinding Operator Name Role Phone Lizbeth Iniguez MD Primary Care Provider [phone] Lizbeth Iniguez MD Unavailable [phone] Reason for Referral * Imaging (Emergency) - Authorized Specialty Diagnoses / Procedures Referred By Grant carballo Referred To Contact Radiology Diagnoses Finger injury, initial encounter Procedures Urgent Care Xray Latonya Clark MD [address] [facility], [address] [address] Phone: tel: fax: Referral ID Status Reason Start Date Expiration Date Visits Requested Visits Authorized [id number] Authorized Perform Procedure 02/27/2024 02/26/2025 1 1 Encounter Details Date Type Department Care Team (Late st Contact Info) Description 02/27/2024 Community Orders [facility] [address] [place] [address] Latonya Clark MD [address] [facility], [address] [id number] Finger injury, initial encounter (Primary Dx) Social History Tobacco Use Types [...] suspected to have Coronavirus/COVID-19? No / Unsure 02/24/2024 7:57 AM EDT documented as of this encounter Functional Status * BP Answer Date of Assessment Author 157/82 02/27/2024 8:14 AM EDT Conversio n, Kapiltreet Vitals * Pulse Answer Date of Assessment Author 71 02/27/2024 8:14 AM EDT Robinio n, Kapiltreet Vitals documented as of this encounter Plan of Treatment Upcoming Encounters Date Type Department Care Team (Latest Contact Info) Description 07/19/2025 8:15 AM EST Anticoagulation - Warfarin Visit [facility] [address] [facility] 203 [place] [address] 07/25/2025 1:40 PM EST Office Visit [address] [place] [phone] Sena Teixeira, CAKE PRESS OPERATOR-INSULATION INSTALLER [address] [facility] 202 [place] [address] 08/03/2025 8:30 AM EST Office Visit [facility] [address] [facility] 201 [place] [phone] Lizbeth Iniguez MD [address] [facility], [address] [place] [address] 11/23/2025 8:00 AM EDT Office Visit [address] [place] [phone] Sena Teixeira, CAKE PRESS OPERATOR-INSULATION INSTALLER [address] [facility] [address] [place] [address] documented as of this encounter Results * Urgent Care Xray (02/27/2024 9:00 AM EDT) Anatomical Region Laterality Modality Computed Radiogr aphy 02/27/2024 9:36 AM EDT 02/27/2024 9:36 AM EDT Impressions 02/27/2024 9:35 AM EDT Negative left digit. MACRO: None Signed by: Magaly Sevilla 02/27/2024 9:35 AM Dictation workstation: [id number] Narrative 02/27/2024 9:35 AM EDT Interpreted By: Magaly Sevilla, STUDY: XR URGENT CARE XRAY; ; 02/27/2024 9:00 am INDICATION: Signs/Symptoms:finger injury. COMPARISON: None. ACCESSION NUMBER(S): [id number] ORDERING CLINICIAN: LATONYA CLARK FINDINGS: Three views left digit: There is no fracture or dislocation. Procedure Note Magaly Sevilla MD - 02/27/2024 Interpreted By: Magaly Sevilla, STUDY: XR URGENT CARE XRAY; ; 02/27/2024 9:00 am INDICATION: Signs/Symptoms:finger injury. COMPARISON: None. ACCESSION NUMBER(S): [id number] ORDERING CLINICIAN: LATONYA CLARK FINDINGS: Three views left digit: There is no fracture or dislocation. IMPRESSION: Negative left digit. MACRO: None Signed by: Magaly Sevilla 02/27/2024 9:35 AM Dictation workstation: [id number] us Latonya Clark MD IMG XR PROCEDURES Final Result documented in this encounter Visit Diagnoses Diagnosis Finger injury, initial encounter- Primary Finger injury, initial encounter documented in this encounter Additional Health Concerns Assessment Noted Time A fall risk assessment has been complete d for the patient 09/21/2023 8:18 AM EST documented as of this encounter Care Teams Grinding Operator Relationship Specialty Start Date End Date Lizbeth Iniguez MD [address] [facility], [address] [place] [address] PCP - General 12/21/11 Lizbeth Iniguez MD [address] [facility], [facility] [address] [place] [address] PCP - MSSP ACO Attributed Provider 08/30/23 02/27/24 documented as of this encounter
--- OUTSIDE RECORDS SUMMARY | 2025-07-06 17:15 | XMS_ITS | Encounter Summary ---
Author Organization [facility] Address [address] [place] [address] Phone Care Team Providers Care Packing And Stamping Machine Operator Name Role Phone Lizbeth Iniguez MD Primary Care Provider [phone] Encounter Details Date Type Department Care Team (Latest Contact Info) Description 06/07/2025 Travel Social History Tobacco Use Types Packs/Day [...] 8:15 AM EST Anticoagulation - Warfarin Visit [facility] [address] [place] [address] 07/25/2025 1:40 PM EST Office Visit [facility] [address] [place] [phone] Sena Teixeira, FLOOR SERVICE WORKER SPRING-SUPERVISOR FABRICATION [address] [facility] 202 [place] [address] 08/03/2025 8:30 AM EST Office Visit [facility] [address] [facility] [address] [place] [phone] Lizbeth Iniguez MD [address] [facility], [facility] [address] [place] [address] 11/23/2025 8:00 AM EDT Office Visit [facility] [address] [facility] [address] [place] [phone] Sena Teixeira, FLOOR SERVICE WORKER SPRING-SUPERVISOR FABRICATION [address] [facility] 202 [place] [address] documented as of this encounter Visit Diagnoses Not on filedocumented in this encounter Additional Health Concerns Assessment Noted Time A fall risk assessment has been complete d for the patient 02/02/2025 7:48 AM EDT documented as of this encounter Care Teams Packing And Stamping Machine Operator Relationship Specialty Start Date End Date Lizbeth Iniguez MD [address] [facility], [facility] [address] [place] [address] PCP - General 12/21/11 documented as of this encounter
--- OUTSIDE RECORDS SUMMARY | 2025-07-06 17:15 | XMS_ITS | Encounter Summary ---
Author Organization [facility] Address [address] [place] [address] Phone Care Team Providers Care Home Care Physical Therapist Name Role Phone Lizbeth Iniguez MD Primary Care Provider [phone] Encounter Details Date Type Department Care Team (Late st Contact Info) Description 03/02/2024 Patient Risk Score ACO Care Management [address] [place] [address] Social History Tobacco Use Types [...] suspected to have Coronavirus/COVID-19? No / Unsure 03/03/2024 8:13 AM EDT documented as of this encounter Functional Status * Communicable Disease Screening Question Answer Date of Assessment Author Do you have any of the following new or worsening symptoms? None of these 03/03/2024 8:13 AM EDT Evangelina Chavez M A documented as of this encounter Plan of Treatment Upcoming Encounters Date Type Department Care Team (Latest Contact Info) Description 07/19/2025 8:15 AM EST Anticoagulation - Warfarin Visit [facility] [address] [facility] 203 [place] [address] 07/25/2025 1:40 PM EST Office Visit [address] [place] [address] Sena Teixeira, MACHINE HAND-PROJECT DEVELOPER [address] [facility] 202 [place], [place] [phone] 08/03/2025 8:30 AM EST Office Visit [facility] [address] [facility] 201 [place] [phone] Lizbeth Iniguez MD [address] [facility], [facility] 201 [place] [address] 11/23/2025 8:00 AM EDT Office Visit [address] [place] [address] Sena Teixeira, MACHINE HAND-PROJECT DEVELOPER [id number] [place] [address] 202 [place] [address] documented as of this encounter Visit Diagnoses Not on filedocumented in this encounter Additional Health Concerns Assessment Noted Time A fall risk assessment has been complete d for the patient 09/21/2023 8:18 AM EST documented as of this encounter Care Teams Home Care Physical Therapist Relationship Specialty Start Date End Date Lizbeth Iniguez MD [address] [facility], [facility] [address] [place] [address] PCP - General 12/21/11 documented as of this encounter
--- OUTSIDE RECORDS SUMMARY | 2025-07-06 17:15 | XMS_ITS | Encounter Summary ---
Author Organization [facility] Address [address] [place] [address] Phone Care Team Providers Care Machinist Apprentice Wood Name Role Phone Lizbeth Iniguez MD Primary Care Provider [phone] Encounter Details Date Type Department Care Team (Latest Contact Info) Description 06/21/2025 Travel Social History Tobacco Use Types Packs/Day [...] Crow MA documented as of this encounter Plan of Treatment Upcoming Encounters Date Type Department Care Team (Latest Contact Info) Description 07/19/2025 8:15 AM EST Anticoagulation - Warfarin Visit [facility] [address] [place] [address] 07/25/2025 1:40 PM EST Office Visit [facility] [address] [place] [phone] Sena Teixeira, PRIMING MACHINE OPERATOR-ELECTRICAL ASSEMBLY TECHNICIAN [address] [facility] 202 [place] [address] 08/03/2025 8:30 AM EST Office Visit [facility] [address] [facility] [address] [place] [phone] Lizbeth Iniguez MD [address] [facility], [facility] [address] [place] [address] 11/23/2025 8:00 AM EDT Office Visit [facility] [address] [facility] [address] [place] [phone] Sena Teixeira, PRIMING MACHINE OPERATOR-ELECTRICAL ASSEMBLY TECHNICIAN [address] [facility] [address] [place] [address] documented as of this encounter Visit Diagnoses Not on filedocumented in this encounter Additional Health Concerns Assessment Noted Time A fall risk assessment has been complete d for the patient 02/02/2025 7:48 AM EDT documented as of this encounter Care Teams Machinist Apprentice Wood Relationship Specialty Start Date End Date Lizbeth Iniguez MD [address] [facility], [facility] [address] [place] [address] PCP - General 12/21/11 documented as of this encounter
--- OUTSIDE RECORDS SUMMARY | 2025-07-06 17:15 | XMS_ITS | Clinical Summary ---
Author Organization [facility] Address [address] [place] [address] Phone Care Team Providers Care Obiee Lead Developer Name Role Phone Lizbeth Iniguez MD Primary Care Provider [phone] Allergies No known active allergies Medications loratadine/pseu doephedrine (CLARITIN-D 24 HOUR ORAL) Take by mouth. Acti ve tamsulosin (Flomax) 0.4 mg 24 hr capsuleIndicati ons:Benign prostatic hyperplasia with lower urinary tract symptoms,Other obstructive and reflux uropathy Take 1 capsule (0.4 mg) by mouth once daily. 90 capsule 3 11/25/19 25 Active lisinopril 5 mg tablet Take 1 tablet (5 mg) by mouth early in the morning.. 11/26/19 25 Active warfarin (Coumadin) 1 mg tabletIndicatio ns:Pulmonary embolism, unspecified chronicity, unspecified pulmonary embolism type, unspecified whether acute cor pulmonale present (Multi) Take 1 tablet (1 mg) by mouth once daily in the evening. 90 tablet 1 02/07/20 25 Active metoprolol succinate XL (Toprol-XL) 50 mg 24 hr tabletIndicatio ns:Supraventric ular tachycardia TAKE 1 TABLET (50 MG) BY MOUTH EVERY DAY DO NOT CRUSH OR CHEW 90 tablet 1 04/16/20 25 Active tadalafil (Cialis) 5 mg tabletIndicatio ns:benign prostatic hyperplasia with lower urinary tract sx TAKE 1 TABLET BY MOUTH DAILY. (MAY TAKE UP TO 20MG NEEDED FOR ERECTILE DYSFUNCTION) 90 tablet 11 05/15/20 25 Active lovastatin (Mevacor) 20 mg tabletIndicatio ns:Hyperlipidem ia, unspecified TAKE 1 TABLET BY MOUTH EVERY DAY 90 tablet 1 07/02/20 25 Active warfarin (Coumadin) 4 mg tabletIndicatio ns:Pulmonary embolism, unspecified chronicity, unspecified pulmonary embolism type, unspecified whether acute cor pulmonale present (Multi) TAKE 1 TABLET (4 MG) BY MOUTH ONCE DAILY IN THE EVENING. 90 tablet 2 07/02/20 25 Active pantoprazole (ProtoNix) 40 mg EC tabletIndicatio ns:Gastroesopha geal reflux disease with esophagitis without hemorrhage,Hear tburn Take 1 tablet (40 mg) by mouth once daily in the morning. Take before meals. NEEDS APPT FOR FURTHER REFILLS 90 tablet 07/02/20 25 Active warfarin (Coumadin) 4 mg tabletIndicatio ns:Pulmonary embolism, unspecified chronicity, unspecified pulmonary embolism type, unspecified whether acute cor pulmonale present (Multi) TAKE 1 TABLET (4 MG) BY MOUTH ONCE DAILY IN THE EVENING. 90 tablet 2 11/24/19 25 025 Discontinued lovastatin (Mevacor) 20 mg tabletIndicatio ns:Hyperlipidem ia, unspecified TAKE 1 TABLET BY MOUTH EVERY DAY 90 tablet 1 01/09/20 25 025 Discontinued pantoprazole (ProtoNix) 40 mg EC tabletIndicatio ns:Gastroesopha geal reflux disease with esophagitis without hemorrhage,Hear tburn Take 1 tablet (40 mg) by mouth once daily in the morning. Take before meals. MUST MAKE APPT FOR FURTHER REFILLS 90 tablet 04/18/20 25 025 Discontinued pantoprazole (ProtoNix) 40 mg EC tabletIndicatio ns:Gastroesopha geal reflux disease with esophagitis without hemorrhage,Hear tburn PLEASE SEE ATTACHED FOR DETAILED DIRECTIONS 90 tablet 07/02/20 25 025 Discontinued Active Problems Problem Noted Date Diagnosed Date LBBB (left bundle branch block) 11/14/2024 Chest discomfort 11/14/2024 AGARWAL (dyspnea on exertion) 11/14/2024 NSVT (nonsustained ventricular tachycardia) 08/31 Benign paroxysmal positional vertigo 07/27/2023 Pulmonary embolism, unspecif ied chronicity, unspecified pulmonary embolism type, unspecified whether acute cor pulmonale present 06/11/2023 BPH with obstruction/lower urinary tract symptom s 01/29/2023 ED (erectile dysfunction) 01/29/2023 GERD (gastroesophageal reflux disease) Hyperlipidemia 01/29/2023 Hypertension 01/29/2023 Impaired fasting blood sugar 01/29/2023 Pulmonary embolism 01/29/2023 Overview (11/14/2024): Unprovoked on chronic OAC SVT (supraventricular tachycardia) 01/29/2023 Resolved Problems Problem Noted Date Diagnosed Date Resolved Date COVID-19 virus infection 12/17/202201/2025 Assessment & Plan (12/17/2022 10:06 AM EDT): His symptoms getting better. Encounters Date Type Department Care Team Description 07/02/2025 Refill [place] [address] [phone] Grabiel Kelly MD Gastroesophageal reflux disease with esophagitis without hemorrhage; Heartburn 07/01/2025 [place] [address] [phone] Grabiel Kelly MD Gastroesophageal reflux disease with esophagitis without hemorrhage; Heartburn 07/01/2025 Refill [facility] [address] [place] [address] Lizbeth Iniguez MD Hyperlipidemia, unspecified; Pulmonary embolism, unspecified chronicity, unspecified pulmonary embolism type, unspecified whether acute cor pulmonale present (Multi) 06/21/2025 8:15 AM EDT Anticoagulation - Warfarin Visit [facility] [address] [employer] [address] [place] [phone] Xin Agarwal RN Pulmonary embolism, unspecified chronicity, unspecified pulmonary embolism type, unspecified whether acute cor pulmonale present (Multi) (Primary Dx) Discharge Disposition: Home 06/21/2025 Travel 06/07/2025 8:15 AM EDT Anticoagulation - Warfarin Visit [facility] [address] [place] [phone] Kaylee Clark RN Pulmonary embolism, unspecified chronicity, unspecified pulmonary embolism type, unspecified whether acute cor pulmonale present (Multi) (Primary Dx) Discharge Disposition: Home 06/07/2025 Travel 05/31/2025 8:15 AM EDT Anticoagulation - Warfarin Visit [facility] [address] [employer] [facility] [address] [place] [address] Xin Agarwal RN Pulmonary embolism, unspecified chronicity, unspecified pulmonary embolism type, unspecified whether acute cor pulmonale present (Multi) (Primary Dx) Discharge Disposition: Home 05/31/2025 Travel 05/28/2025 Travel 05/28/2025 Anticoagulation - Warfarin Visit [place] [address] [employer] [address] [phone] Gume Lu RN Pulmonary embolism, unspecified chronicity, unspecified pulmonary embolism type, unspecified whether acute cor pulmonale present (Multi) (Primary Dx) 05/27/2025 [facility] [address] [facility] [place] [phone] Sena Teixeira, SPECIAL INVESTIGATOR-RESERVATIONS AND TICKETING AGENT Screening for prostate cancer 05/24/2025 8:15 AM EDT Anticoagulation - Warfarin Visit [place] [address] [employer] [address] [phone] Xin Agarwal RN Pulmonary embolism, unspecified chronicity, unspecified pulmonary embolism type, unspecified whether acute cor pulmonale present (Multi) (Primary Dx) Discharge Disposition: Home 05/24/2025 Travel 05/22/2025 Travel 05/21/2025 8:00 AM EDT Anticoagulation - Warfarin Visit [place] [phone] [employer] [facility] [address] [place] [phone] Pulmonary embolism, unspecified chronicity, unspecified pulmonary embolism type, unspecified whether acute cor pulmonale present (Multi) Discharge Disposition: Home 05/17/2025 8:15 AM EDT Anticoagulation - Warfarin Visit [place] [phone] [employer] [facility] [address] [place] [phone] Xin Agarwal RN Pulmonary embolism, unspecified chronicity, unspecified pulmonary embolism type, unspecified whether acute cor pulmonale present (Multi) (Primary Dx) Discharge Disposition: Home 05/17/2025 Travel 05/14/2025 Orders Only [facility] [address] [place] [address] Puneet, Sena C, SPECIAL INVESTIGATOR-RESERVATIONS AND TICKETING AGENT 05/11/2025 Orders Only [facility] [address] [facility] [address] [place] [address] Puneet, Sena C, SPECIAL INVESTIGATOR-RESERVATIONS AND TICKETING AGENT BPH with obstruction/lower urinary tract symptoms; Erectile dysfunction, unspecified erectile dysfunction type 05/09/2025 Refill [facility] [address] [place] [phone] Puneet, Sena C, SPECIAL INVESTIGATOR-RESERVATIONS AND TICKETING AGENT BPH with obstruction/lower urinary tract symptoms; Erectile dysfunction, unspecified erectile dysfunction type 05/03/2025 8:15 AM EDT Anticoagulation - Warfarin Visit [place] [phone] [employer] [address] [phone] Rekha Muñiz RN Pulmonary embolism, unspecified chronicity, unspecified pulmonary embolism type, unspecified whether acute cor pulmonale present (Multi) (Primary Dx) Discharge Disposition: Home 05/03/2025 Travel 04/26/2025 8:15 AM EDT Anticoagulation - Warfarin Visit [facility] [address] [employer] [address] [phone] Xin Agarwal RN Pulmonary embolism, unspecified chronicity, unspecified pulmonary embolism type, unspecified whether acute cor pulmonale present (Multi) (Primary Dx) Discharge Disposition: Home 04/26/2025 Orders Only [facility] [email or web address] [phone] Xin Agarwal RN Pulmonary embolism, unspecified chronicity, unspecified pulmonary embolism type, unspecified whether acute cor pulmonale present (Multi) (Primary Dx) 04/26/2025 Travel 04/18/2025 Refill [facility] [address] [facility] [address] [place] [address] Grabiel Kelly MD Gastroesophageal reflux disease with esophagitis without hemorrhage; Heartburn 04/14/2025 Refill [facility] [address] [place] [address] Lizbeth Iniguez MD Supraventricular tachycardia 04/12/2025 8:15 AM EDT Anticoagulation - Warfarin Visit [facility] [address] [place] [phone] Xin Agarwal RN Pulmonary embolism, unspecified chronicity, unspecified pulmonary embolism type, unspecified whether acute cor pulmonale present (Multi) (Primary Dx) Discharge Disposition: Home 04/12/2025 Travel 04/05/2025 8:15 AM EDT Anticoagulation - Warfarin Visit [facility] [address] [place] [phone] Xin Agarwal RN Pulmonary embolism, unspecified chronicity, unspecified pulmonary embolism type, unspecified whether acute cor pulmonale present (Multi) (Primary Dx) 04/05/2025 Travel from Last 3 Months Immunizations Immunization Administration Dates Next Due Flu vaccine (IIV4), preserva tive free *Check age/dose* 06/17/2019,06/25/2018,06/26/2017,2014 Flu vaccine, quadrivalent, n o egg protein, age 6 month or greater (FLUCELVAX) 05/11/2020 Flu vaccine, trivalent, pres ervative free, HIGH-DOSE, age 65y+ (Fluzone) 05/16/2024 Flu vaccine, trivalent, pres ervative free, age 6 months and greater (Fluarix/Fluzone/Flulaval) 06/26/2017,06/26/2015 Influenza, Seasonal, Quadriv alent, Adjuvanted 06/10/2023 Influenza, seasonal, injectable 05/11/2020,06/20 Novel [id number], preservative-free 08/31/2009 Pfizer COVID-19 vaccine, 12 years and older, (30mcg/0.3mL) (Comirnaty) 06/10/2023 Pfizer COVID-19 vaccine, biv alent, age 12 years and older (30 mcg/0.3 mL) 06/02/2022 RSV, 60 Years And Older (AREXVY) 09/24/2023 Tdap vaccine, age 7 year and older (BOOSTRIX, ADACEL) 06/14/2017 Zoster vaccine, recombinant, adult (SHINGRIX) 04/13/2025,02/02/2025 Family History Medical History Relation Name Comments No Known Problems Father No Known Problems Mother Relation Name Status Comments Father Mother Social History Tobacco Use Types Packs/Day Years Used Date Smoking Tobacco: Never Smokeless Tobacco: Never Tobacco Cessation:Counseling Given: Not Answered Alcohol Use Standard Drinks/Week Comments Yes 4 (1 standard drink = 0.6 oz pur e alcohol) PHQ-2 Answer Date Recorded Patient Health Questionnaire-2 Score 0 02/02/2025 Sex and Gender Information Value Date Recorded Sex Assigned at Male 11/13/2024 4:47 PM EDT Legal Sex Male 7:57 AM EST Gender Identity Male 11/13/2024 4:47 PM EDT Sexual Orientation Straight 11/13/2024 4: 47 PM EDT Last Filed Vital Signs Vital Sign Reading Time Taken Comments Blood Pressure 138/68 02/02/2025 7:46 AM EDT Pulse 62 11/29/2024 9:08 AM EDT Temperature 36.4 C (97.6 F) 02/02/2025 7:46 AM EDT Respiratory Rate 16 07/24/2024 7:31 PM EST Oxygen Saturation 98% 11/13/2024 3:07 PM EDT Inhaled Oxygen Concentration - - Weight 94.3 kg (208 lb) 02/02/2025 7:46 AM EDT Height 185.4 cm (6' 1) 02/02/2025 7:46 AM EDT Body Mass Index 27.44 02/02/2025 7:46 AM EDT Plan of Treatment Upcoming Encounters Date Type Department Care Team (Latest Contact Info) Description 07/19/2025 8:15 AM EST Anticoagulation - Warfarin Visit [facility] [address] [phone] 07/25/2025 1:40 PM EST Office Visit [address] [place] [phone] Sena Teixeira, SPECIAL INVESTIGATOR-RESERVATIONS AND TICKETING AGENT [address] [facility] [address] [place] [address] 08/03/2025 8:30 AM EST Office Visit [facility] [address] [place] [phone] Lizbeth Iniguez MD [address] [facility] [place], [place] [phone] 11/23/2025 8:00 AM EDT Office Visit [address] [place] [phone] Sena Teixeira, SPECIAL INVESTIGATOR-RESERVATIONS AND TICKETING AGENT [address] [facility] [address] [place] [address] Health Maintenance Due Date Last Done Comments CT Colonography 1956 FIT-DNA (Cologuard) 1955 FIT 1955 Sigmoidoscopy 1955 Hepatitis C Screening 1974 Pneumococcal Vaccine (1 of 1 - PCV) 2006 MMR Vaccines (1 of 1 - Standard series) 09/28/2009 PSA Prostate Cancer Screening 09/23/2024 09/23/2023, 10/26/2022, 08/26/2022, Additional history exists COVID-19 Vaccine ( - season) 2025 05/16/2024, 06/10/2023, 06/02/2022 Medicare Annual Wellness Visit (AWV) 02/03/2026 02/02/2025, 09/21/2023 Diabetes: Hemoglobin A1C 05/16/2026 025, 08/04/2024, 09/23/2023, Additional history exists DTaP/Tdap/Td Vaccines (2 - Td or Tdap) 06/14/2027 06/14/2017 Diabetes Screening 05/16/2028 05/16/2025, 1 10/05/2023, 08/04/2024, Additional history exists Lipid Panel 08/04/2029 08/04/2024, 08/31, 08/26/2022, Additional history exists Colonoscopy 07/10/2032 07/10/2022 Colorectal Cancer Screening 07/10/2032 Irritable Bowel Syndrome Discontinued 07/10/2022 RSV High Risk: (Elderly (60+) or Population) Completed 09/24/2023 Zoster Vaccines Completed 04/13/2025, 02/02/2025 Influenza Vaccine Completed 05/23/2025, , 06/10/2023, Additional history exists HIB Vaccines Aged Out No longer eligi ble based on patient's age to complete this topic HPV Vaccines Aged Out No longer eligi ble based on patient's age to complete this topic Hepatitis A Vaccines Aged Out No long er eligible based on patient's age to complete this topic Hepatitis B Vaccines Aged Out No long er eligible based on patient's age to complete this topic IPV Vaccines Aged Out No longer eligi ble based on patient's age to complete this topic Meningococcal Vaccine Aged Out No tae flor eligible based on patient's age to complete this topic Rotavirus Vaccines Aged Out No longer eligible based on patient's age to complete this topic Procedures Procedure Name Priority Date/Time Associated Diagnosis Comments POCT INR Routine 06/21/2025 8:07 AM EDT Pulmonary embolism, unspecified chronicity, unspecified pulmonary embolism type, unspecified whether acute cor pulmonale present (Multi) POCT INR Routine 06/07/2025 8:08 AM EDT Pulmonary embolism, unspecified chronicity, unspecified pulmonary embolism type, unspecified whether acute cor pulmonale present (Multi) POCT INR Routine 05/31/2025 8:06 AM EDT Pulmonary embolism, unspecified chronicity, unspecified pulmonary embolism type, unspecified whether acute cor pulmonale present (Multi) POCT INR Routine 05/28/2025 7:49 AM EDT Pulmonary embolism, unspecified chronicity, unspecified pulmonary embolism type, unspecified whether acute cor pulmonale present (Multi) POCT INR Routine 05/24/2025 8:12 AM EDT Pulmonary embolism, unspecified chronicity, unspecified pulmonary embolism type, unspecified whether acute cor pulmonale present (Multi) POCT INR Routine 05/21/2025 8:06 AM EDT Pulmonary embolism, unspecified chronicity, unspecified pulmonary embolism type, unspecified whether acute cor pulmonale present (Multi) POCT INR Routine 05/17/2025 8:10 AM EDT Pulmonary embolism, unspecified chronicity, unspecified pulmonary embolism type, unspecified whether acute cor pulmonale present (Multi) POCT INR Routine 05/03/2025 8:12 AM EDT Pulmonary embolism, unspecified chronicity, unspecified pulmonary embolism type, unspecified whether acute cor pulmonale present (Multi) POCT INR Routine 04/26/2025 8:18 AM EDT Pulmonary embolism, unspecified chronicity, unspecified pulmonary embolism type, unspecified whether acute cor pulmonale present (Multi) POCT INR Routine 04/12/2025 8:16 AM EDT Pulmonary embolism, unspecified chronicity, unspecified pulmonary embolism type, unspecified whether acute cor pulmonale present (Multi) POCT INR Routine 04/05/2025 8:12 AM EDT Pulmonary embolism, unspecified chronicity, unspecified pulmonary embolism type, unspecified whether acute cor pulmonale present (Multi) HEMOGLOBIN A1C Routine 08/04/2024 10:46 AM EST Impaired fasting blood sugar LIPID PANEL Routine 08/04/2024 10:46 AM EST Hyperlipidemia, unspecified hyperlipidemia type PROSTATE SPECIFIC ANTIGEN Routine 09/23/2023 7:44 AM EST Well adult exam BPH with obstruction/lower urinary tract symptoms COLONOSCOPY 07/10/2022 from Last 3 Months or Most Recently Relevant to Health Maintenance Results * (ABNORMAL) POCT INR manually resulted (06/21/2025 8:07 AM EDT) POC INR 2.70(A) 0.90 - 1.10 POC Prothrombin Time 9.30 - 12.50 Blood Venous blood specimen / Unknown 06/21/2025 8:07 AM EDT us Lizbeth Iniguez MD POINT OF CARE TEST ENTER/EDIT O RDERABLES Final Result * (ABNORMAL) POCT INR manually resulted (06/07/2025 8:08 AM EDT) POC INR 2.80(A) 0.90 - 1.10 POC Prothrombin Time 9.30 - 12.50 Blood Venous blood specimen / Unknown 06/07/2025 8:08 AM EDT us Lizbeth Iniguez MD POINT OF CARE TEST ENTER/EDIT O RDERABLES Final Result * (ABNORMAL) POCT INR manually resulted (05/31/2025 8:06 AM EDT) POC INR 2.80(A) 0.90 - 1.10 POC Prothrombin Time 9.30 - 12.50 Blood Venous blood specimen / Unknown 05/31/2025 8:06 AM EDT us Lizbeth Iniguez MD POINT OF CARE TEST ENTER/EDIT O RDERABLES Final Result * (ABNORMAL) POCT INR manually resulted (05/28/2025 7:49 AM EDT) POC INR 2.40(A) 0.90 - 1.10 POC Prothrombin Time 9.30 - 12.50 Blood Venous blood specimen / Unknown 05/28/2025 7:49 AM EDT us Lizbeth Iniguez MD POINT OF CARE TEST ENTER/EDIT O RDERABLES Final Result * (ABNORMAL) POCT INR manually resulted (05/24/2025 8:12 AM EDT) [facility] POC INR 3.20(A) 0.90 - 1.10 POC Prothrombin Time 9.30 - 12.50 Blood Venous blood specimen / Unknown 05/24/2025 8:12 AM EDT us Lizbeth Iniguez MD POINT OF CARE TEST ENTER/EDIT O RDERABLES Final Result * (ABNORMAL) POCT INR manually resulted (05/21/2025 8:06 AM EDT) [facility] POC INR 3.30(A) 0.90 - 1.10 POC Prothrombin Time 9.30 - 12.50 Blood Venous blood specimen / Unknown 05/21/2025 8:06 AM EDT us Lizbeth Iniguez MD POINT OF CARE TEST ENTER/EDIT O RDERABLES Final Result * (ABNORMAL) POCT INR manually resulted (05/17/2025 8:10 AM EDT) [facility] POC INR 2.80(A) 0.90 - 1.10 POC Prothrombin Time 9.30 - 12.50 Blood Venous blood specimen / Unknown 05/17/2025 8:10 AM EDT us Lizbeth Iniguez MD POINT OF CARE TEST ENTER/EDIT O RDERABLES Final Result * POCT INR manually resulted (05/03/2025 8:12 AM EDT) [facility] POC INR 2.60 0.90 - 1.10 POC Prothrombin Time 9.30 - 12.50 Blood Venous blood specimen / Unknown 05/03/2025 8:12 AM EDT us Lizbeth Iniguez MD POINT OF CARE TEST ENTER/EDIT O RDERABLES Final Result * (ABNORMAL) POCT INR manually resulted (04/26/2025 8:18 AM EDT) [facility]ologist [facility] POC INR 3.10(A) 0.90 - 1.10 POC Prothrombin Time 9.30 - 12.50 Blood Venous blood specimen / Unknown 04/26/2025 8:18 AM EDT us Lizbeth Iniguez MD POINT OF CARE TEST ENTER/EDIT O RDERABLES Final Result * (ABNORMAL) POCT INR manually resulted (04/12/2025 8:16 AM EDT) Pathologist [facility] POC INR 2.60(A) 0.90 - 1.10 POC Prothrombin Time 9.30 - 12.50 Blood Venous blood specimen / Unknown 04/12/2025 8:16 AM EDT us Lizbeth Iniguez MD POINT OF CARE TEST ENTER/EDIT O RDERABLES Final Result * (ABNORMAL) POCT INR manually resulted (04/05/2025 8:12 AM EDT) Pathologist [facility] POC INR 2.50(A) 0.90 - 1.10 POC Prothrombin Time 9.30 - 12.50 Blood Venous blood specimen / Unknown 04/05/2025 8:12 AM EDT us Lizbeth Iniguez MD POINT OF CARE TEST ENTER/EDIT O RDERABLES Final Result * (ABNORMAL) Lipid Panel (08/04/2024 10:46 AM EST) Pathologist [facility] Cholesterol 142 0 - 199 mg/dL LAB CHEMISTRY METHOD 08/04/2024 2:01 PM EST [facility] Comment: Age Desirable Borderline High High 0-19 Y 0 - 169 170 - 199 >/= 200 20-24 Y 0 - 189 190 - 224 >/= 225 >24 Y 0 - 199 200 - 239 >/= 240 All ranges are based on fasting samples. Specific therapeutic targets will vary based on patient-specific cardiac risk. Pediatric guidelines reference:Pediatrics 2011, 128(S5).Adult guidelines reference: NCEP ATPIII Guidelines,MICKIE 2001, 258:2486-86 Venipuncture immediately after or during the administration of Metamizole may lead to falsely low results. Testing should be performed immediately prior to Metamizole dosing. HDL-Cholesterol 36.9 mg/dL LAB CHEMISTRY METHOD 08/04/2024 2:01 PM [facility] Comment: Age Very Low Low Normal High 0-19 Y < 35 < 40 40-45 ---- 20-24 Y ---- < 40 >45 ---- >24 Y ---- < 40 40-60 >60 Cholesterol/HDL Ratio 3.8 LAB CHEMISTRY METHOD 08/04/2024 2:01 PM [facility] Comment: Ref Values Desirable < 3.4 High Risk > 5.0 LDL Calculated 73 <=99 mg/dL LAB CHEMISTRY METHOD 08/04/2024 2:01 PM [facility] Comment: Near Borderline AGE Desirable Optimal High High Very High 0-19 Y 0 - 109 --- 110-129 >/= 130 ---- 20-24 Y 0 - 119 --- 120-159 >/= 160 ---- >24 Y 0 - 99 100-129 130-159 160-189 >/=190 VLDL 32 0 - 40 mg/dL LAB CHEMISTRY METHOD 08/04/2024 2:01 PM [facility] Triglycerides 159(H) 0 - 149 mg/dL LAB CHEMISTRY METHOD 08/04/2024 2:01 PM [facility] Comment: Age Desirable Borderline High Very High SEX:B mg/dL mg/dL mg/dL mg/dL <=14D 86-277 ---- ---- ---- 15D-365D 55-277 ---- ---- ---- 1Y-9Y 0-74 75-99 >=100 ---- 10Y-19Y 0-89 90-129 >=130 ---- 20Y-24Y 0-114 115-149 >=150 ---- >= 25Y 0-149 150-199 200-499 >=500 Venipuncture immediately after or during the administration of Metamizole may lead to falsely low results. Testing should be performed immediately prior to Metamizole dosing. Non HDL Cholesterol 105 0 - 149 mg/dL LAB CHEMISTRY METHOD 08/04/2024 2:01 PM EST [facility] Comment: Age Desirable Borderline High High Very High 0-19 Y 0 - 119 120 - 144 >/= 145 >/= 160 20-24 Y 0 - 149 150 - 189 >/= 190 ---- >24 Y 30 mg/dL above LDL Cholesterol goal Blood Venous blood specimen / Unknown Venipuncture / Unknown 08/04/2024 10:46 AM EST 08/04/2024 10:46 AM EST Lizbeth Iniguez MD LAB BLOOD ORDERABLES Final Resu lt [facility] [address] [place] [address] * Prostate Specific Antigen (09/23/2023 7:44 AM EST) Prostate Specific AG 1.77 <=4.00 ng/mL LAB IMMUNOASSAY METHOD 09/23/2023 1:59 PM EST [facility] Blood Venous blood specimen / Unknown Venipuncture / Unknown 09/23/2023 7:44 AM EST 09/23/2023 7:44 AM EST Narrative [facility] - 09/23/2023 1:59 PM EST The FDA requires that the method used for PSA assay be reported to the physician. Values obtained with different assay methods must not be used interchangeably. This test was performed at [facility] using [employer] PSA method, which is a sandwich immunoassay using chemiluminescence for quantitation. The assay is approved for measurement of prostate-specific antigen (PSA) in serum and may be used in conjunction with a digital rectal examination in men 50 years and older as an aid in the detection of prostate cancer. 5 Alpha-reductase inhibitors (e.g., Proscar, Finasteride, Avodart, Dutasteride, and Natalia) for the treatment of BPH have been shown to lower PSA levels by an average of 50% after 6 months of treatment. us Lizbeth Iniguez MD LAB BLOOD ORDERABLES Final Resu lt [facility] [id number] [facility] [id number] [place], [place] [id number] * COLONOSCOPY (07/10/2022) Anatomical Region Laterality Modality Endoscopy Narrative 07/10/2022 Ordered by an unspecified provider. us Onbase Conversion ENDOSCOPY PROCEDURE ORDERABLES Final Result from Last 3 Months or Most Recently Relevant to Health Maintenance Insurance MEDICARE PART A AND B [facility] MEDICARE PART A AND B [facility] Advance Directives For more information, please contact: [phone] (Available ) Healthcare Agents on File Name Relationship Healthcare Agent Relationshi p Communication Nereyda Haro Spouse Health Care Agent Care Teams Obiee Lead Developer Relationship Specialty Start Date End Date Lizbeth Iniguez MD [address] [facility], [address] [place] [address] PCP - General 12/21/11
--- OUTSIDE RECORDS SUMMARY | 2025-07-06 17:16 | XMS_ITS | Encounter Summary ---
Author Organization [facility] Address [address] [place] [address] Phone Care Team Providers Care Mold Chipper Name Role Phone Lizbeth Iniguez MD Primary Care Provider [phone] Reason for Visit * Reason Comments Med Refill Encounter Details Date Type Department Care Team (Late st Contact Info) Description 07/01/2025 Refill [facility] [address] [place] [address] 2 [place] [phone] Grabiel Kelly MD [address] [facility], [facility] 2 [place], [place] [id number] Gastroesophageal reflux disease with esophagitis without hemorrhage; Heartburn Social History Tobacco Use Types Packs/Day Years [...] 8:15 AM EST Anticoagulation - Warfarin Visit [facility] [address] [facility] [address] [place] [address] 07/25/2025 1:40 PM EST Office Visit [address] [place] [phone] Sena Teixeira, FINANCIAL AID COORDINATOR-AIRCRAFT LAUNCH AND RECOVERY TECHNICIAN [address] [facility] [address] [place] [address] 08/03/2025 8:30 AM EST Office Visit [facility] 5778 [facility] 201 [place] [address] Lizbeth Iniguez MD 5778 [facility], [facility] [address] [place] [address] 11/23/2025 8:00 AM EDT Office Visit [address] [place] [address] Sena Teixeira, FINANCIAL AID COORDINATOR-AIRCRAFT LAUNCH AND RECOVERY TECHNICIAN [address] [facility] [address] [place] [address] documented as of this encounter Visit Diagnoses Diagnosis Gastroesophageal reflux disease with esophagitis without hemorrhage Heartburn documented in this encounter Additional Health Concerns Assessment Noted Time A fall risk assessment has been complete d for the patient 02/02/2025 7:48 AM EDT documented as of this encounter Care Teams Mold Chipper Relationship Specialty Start Date End Date Lizbeth Iniguez MD 5[address] [facility], [facility] [address] [place] [address] PCP - General 12/21/11 documented as of this encounter
--- OUTSIDE RECORDS SUMMARY | 2025-07-06 17:16 | XMS_ITS | Encounter Summary ---
Author Organization [facility] Address [address] [place] [address] Phone Care Team Providers Care Harbor Pilot Name Role Phone Lizbeth Iniguez MD Primary Care Provider [phone] Reason for Visit * Reason Comments Med Refill Encounter Details Date Type Department Care Team (Late st Contact Info) Description 07/01/2025 Refill [facility] [address] [facility] [address] [place] [address] Lizbeth Iniguez MD [address] [facility], [facility] [address] [place], [place] [id number] Hyperlipidemia, unspecified; Pulmonary embolism, unspecified chronicity, unspecified pulmonary embolism type, unspecified whether acute cor pulmonale present (Multi) Social History Tobacco Use Types Packs/Day Years [...] 8:15 AM EST Anticoagulation - Warfarin Visit [facility]19 [facility] 203 [place] [address] 07/25/2025 1:40 PM EST Office Visit [address] [place] [address] Sena Teixeira, PANTOGRAPH I ENGRAVER-BULK GAS SPECIALIST [address] [facility] [address] [place] [address] 08/03/2025 8:30 AM EST Office Visit [facility] 5778 [facility] 201 [place] [address] Lizbeth Iniguez MD [address] [facility] [address] [place] [address] 11/23/2025 8:00 AM EDT Office Visit [address] [place] [address] Sena Teixeira, PANTOGRAPH I ENGRAVER-BULK GAS SPECIALIST [address] [facility] [address] [place] [address] documented as of this encounter Visit Diagnoses Diagnosis Hyperlipidemia, unspecified Pulmonary embolism, unspecified chronicity, unspecified pulmonary embolism type, unspecified whether acute cor pulmonale present (Multi) documented in this encounter Additional Health Concerns Assessment Noted Time A fall risk assessment has been complete d for the patient 02/02/2025 7:48 AM EDT documented as of this encounter Care Teams Harbor Pilot Relationship Specialty Start Date End Date Lizbeth Iniguez MD [address] [facility], [facility] [address] [place] [address] PCP - General 12/21/11 documented as of this encounter
--- OUTSIDE RECORDS SUMMARY | 2025-07-06 17:17 | XMS_ITS | Encounter Summary ---
Author Organization [facility] Address [address] [place] [address] Phone Care Team Providers Care Section Laborer Name Role Phone Lizbeth Iniguez MD Primary Care Provider [phone] Reason for Visit * Reason Comments Med Change Request Encounter Details Date Type Department Care Team (Late st Contact Info) Description 07/02/2025 [facility] [address] [facility] 2 [place] [phone] Grabiel Kelly MD 8185 [facility], [facility] 2 [place], [place] [phone] Gastroesophageal reflux disease with esophagitis without hemorrhage; [...] Warfarin Visit [facility] 8819 [facility] [place] [address] [place] [address] 07/25/2025 1:40 PM EST Office Visit [address] [place] [phone] Sena Teixeira, TELEPHONE DIAPHRAGM ASSEMBLER-GRAPHIC EDITOR [address] [facility] [address] [place] [address] 08/03/2025 8:30 AM EST Office Visit [facility] 5778 [facility] 201 [place] [address] Lizbeth Iniguez MD 5778 [facility], [facility] 201 [place] [address] 11/23/2025 8:00 AM EDT Office Visit [address] [place] [address] Sena Teixeira, TELEPHONE DIAPHRAGM ASSEMBLER-GRAPHIC EDITOR [address] [facility] [address] [place] [address] documented as of this encounter Visit Diagnoses Diagnosis Gastroesophageal reflux disease with esophagitis without hemorrhage Heartburn documented in this encounter Additional Health Concerns Assessment Noted Time A fall risk assessment has been complete d for the patient 02/02/2025 7:48 AM EDT documented as of this encounter Care Teams Section Laborer Relationship Specialty Start Date End Date Lizbeth Iniguez MD 5778 [facility], [facility] 201 [place] [address] PCP - General 12/21/11 documented as of this encounter
--- OUTSIDE RECORDS SUMMARY | 2025-07-06 17:17 | XMS_ITS | Encounter Summary ---
Author Organization [facility] Address [address] [place] [address] Phone Care Team Providers Care Cans Vacuum Tester Name Role Phone Lizbeth Iniguez MD Primary Care Provider [phone] Lizbeth Iniguez MD Unavailable [phone] Reason for Visit * Reason Comments Med Refill Encounter Details Date Type Department Care Team (Late st Contact Info) Description 10/17/2023 Refill [facility] [address] [facility] 202 [place] [address] Sena Teixeira, WELLHEAD PUMPER-FORENSIC COMPUTER EXAMINER [address] [facility] 202 [place], [place] [phone] Benign prostatic hyperplasia with lower urinary tract [...] suspected to have Coronavirus/COVID-19? No / Unsure 10/20/2023 2:59 PM EST documented as of this encounter Functional Status * Communicable Disease Screening Question Answer Date of Assessment Author Do you have any of the following new or worsening symptoms? None of these 10/20/2023 2:59 PM EST Elva Bey MA documented as of this encounter Miscellaneous Notes * Telephone Encounter - LUIS Alcaraz - 10/18/2023 11:17 AM EST Approving, but needs appt for additional refills. documented in this encounter Plan of Treatment Upcoming Encounters Date Type Department Care Team (Latest Contact Info) Description 07/19/2025 8:15 AM EST Anticoagulation - Warfarin Visit [facility] 8819 [facility] [address] [place] [address] 07/25/2025 1:40 PM EST Office Visit [address] [place] [address] Sena Teixeira APRN-CNP [address] [facility] 202 [place] [address] 08/03/2025 8:30 AM EST Office Visit [facility] [address] [facility] [address] [place] [phone] Lizbeth Iniguez MD [address] [facility], [place] [address] [place], [place] [phone] 11/23/2025 8:00 AM EDT Office Visit [address] [place] [address] Sena Teixeira APRN-CNP [address] [facility] 202 [place] [address] documented as of this encounter Visit Diagnoses Diagnosis Benign prostatic hyperplasia with lower urinary tract symptoms Other obstructive and reflux uropathy documented in this encounter Additional Health Concerns Assessment Noted Time A fall risk assessment has been complete d for the patient 09/21/2023 8:18 AM EST documented as of this encounter Care Teams Cans Vacuum Tester Relationship Specialty Start Date End Date Lizbeth Iniguez MD [address] [facility], [facility] [address] [place] [address] PCP - General 12/21/11 Lizbeth Iniguez MD [address] [facility], [facility] [address] [place] [address] PCP - MSSP ACO Attributed Provider 08/30/23 02/27/24 documented as of this encounter
[2025-07-06 17:42] LABS: INR 2.15 (0.91-1.10); Prothrombin Time 25.1 Seconds
== END 2025-07-06 17:57 | disposition home or self-care (01) ==
PROVIDERS: Emergency Provider Emergency Medicine
DX: H11.31 Conjunctival hemorrhage, right eye (principal)
CPT/HCPCS: 36415; 85025; 85610; 99282; 99283